=== PATIENT | female | born 1965 | race Caucasian/White ===

== ENCOUNTER 2017-04-28 15:39 | Emergency (ER) | payer OTHER ==
[~2017-04-28] VITALS: Ht 175.3 cm; Wt 86.2 kg
[~2017-04-28 15:39] MED LIST: ALBU90OI; ALBU90OI INH; ALBU90OI6 INH; AMIT50; AMIT50 PO; AMIT75; AMIT75 PO; AMITRIPTYLINE; AMOCLA875 PO; Amitriptyline H50 MG PO; BENZ100A PO; CEPH500 PO; CONEST.625; CYCL10 PO; DIVA250EC PO; DOXY100 PO; FELDENE; FLUT110OIA IH; GABA100; GABA300T24; HYDACE5; HYDACE5 PO; HYDACE7.5; HYDCHL12.5 PO; HYDCHL25 PO; HYDGUAL120 PO; HYDHCL25 PO; HYDMOR4 PO; HYDMOR8; IBUP600; IBUP800 PO; INDEROL; KETO10 PO; LISHYD1012 PO; LISI20 PO; LISI5 PO; MAGCIT300 PO; MECL25 PO; MORP60ER PO; NAPR500 PO; NAPR550 PO; OXYACE5T PO; OXYACE7.5T PO; OXYC15ER PO; PARO20; POTCHL20ER PO; PRED20 PO; PROM25; PROM25 PO; PROP10; PROP60; PROP60 PO; RXHYDACE PO; RXOXYACE PO; SULTRIDS PO; TRAM50; TRAM50 PO; VARE1 PO; [UNRECOGNIZED DRUG - REMARK]; [UNRECOGNIZED DRUG - REMARK]
[2017-04-28 16:35] LABS: Hematocrit 40.2 % (33.0-51.0); Hemoglobin 13.7 g/dL (11.5-16.0); Mean Corpuscular HGB 31.2 pg (26.0-34.0); Mean Corpuscular HGB Conc 34.1 g/dL (31.5-36.5); Mean Corpuscular Volume 92 fL (80-100); Mean Platelet Volume 11.3 fL (9.1-12.4); Platelet Count 166 K/mm3 (150-400); RDW Coefficient Variation 12.7 % (11.7-14.2); RDW Standard Deviation 42.5 fL (35.1-46.3); Red Blood Cell Count 4.39 M/mm3 (3.80-5.20); White Blood Cell Count 5.35 K/mm3 (4.00-11.30)
[2017-04-28 16:38] LABS: Anion Gap 9 mmol/L (6-16); Blood Urea Nitrogen 9 mg/dL (8-24); Bun/Creatinine Ratio 12.4 (12.0-20.0); CO2, Blood 24 mmol/L (21-32); Chloride, Blood 111 mmol/L (98-108); Creatinine, Blood 0.73 mg/dL (0.40-1.00); Glomerular Filtration Rate >60 (60-); Glucose, Blood 93 mg/dL (70-99); Sodium, Blood 144 mmol/L (136-145)
[2017-04-28] MEDS ORDERED: LISI20 PO (17:12)
[2017-06-11] MEDS ORDERED: Ultram50 MG PO (17:35)
[2017-06-11] MEDS ORDERED: POTCHL20ER PO (17:35)
[2017-09-13] MEDS ORDERED: LEVFLO500 PO (13:14)
== END 2017-04-28 17:22 | disposition home or self-care (01) ==
LOC: ER 15:39
PROVIDERS: Emergency Medicine
DX: I10 Essential (primary) hypertension (principal); Z91.14 Patient's other noncompliance with medication regimen; F32.9 Major depressive disorder, single episode, unspecified; G40.909 Epilepsy, unspecified, not intractable, without status epilepticus; J45.909 Unspecified asthma, uncomplicated; F17.210 Nicotine dependence, cigarettes, uncomplicated; Z86.73 Personal history of transient ischemic attack (TIA), and cerebral infarction without residual deficits; Z79.899 Other long term (current) drug therapy
CPT/HCPCS: 36415; 80048; 85027; 93005; 93010; 96374; 99283; J0360

== ENCOUNTER 2017-05-10 17:25 | Emergency (ER) | payer OTHER ==
[~2017-05-10] VITALS: Ht 175.3 cm; Wt 88.5 kg
[2017-05-10 18:08] LABS: BASOPHILS ABSOLUTE AUTO 0.05 K/mm3 (0.00-0.23); BASOPHILS PERCENT AUTO 1 % (0-2); EOSINOPHILS ABSOLUTE AUTO 0.06 K/mm3 (0.00-0.68); EOSINOPHILS PERCENT AUTO 1 % (0-6); Hematocrit 38.5 % (33.0-51.0); Hemoglobin 12.6 g/dL (11.5-16.0); IMMATURE GRAN ABSOLUTE AUTO 0.01 K/mm3 (0.00-0.10); IMMATURE GRAN PERCENT AUTO 0 % (0-1); LYMPHOCYTES ABSOLUTE AUTO 1.55 K/mm3 (0.84-5.20); LYMPHOCYTES PERCENT AUTO 23 % (21-46); MONOCYTES ABSOLUTE AUTO 0.42 K/mm3 (0.16-1.47); MONOCYTES PERCENT AUTO 6 % (4-13); Mean Corpuscular HGB 31.3 pg (26.0-34.0); Mean Corpuscular HGB Conc 32.7 g/dL (31.5-36.5); Mean Platelet Volume 10.8 fL (9.1-12.4); NEUTROPHILS ABSOLUTE AUTO 4.63 K/mm3 (1.96-9.15); NEUTROPHILS PERCENT AUTO 69 % (41-73); Platelet Count 249 K/mm3 (150-400); RDW Coefficient Variation 12.8 % (11.7-14.2); RDW Standard Deviation 45.1 fL (35.1-46.3); Red Blood Cell Count 4.02 M/mm3 (3.80-5.20); White Blood Cell Count 6.72 K/mm3 (4.00-11.30)
[2017-05-10 18:10] LABS: Mean Corpuscular Volume 96 fL (80-100)
[2017-05-10 18:29] LABS: Alanine Aminotransfer (ALT/SGP 15 U/L (12-78); Albumin, Blood 3.5 g/dL (3.4-5.0); Albumin/Globulin Ratio 0.9 (0.8-1.8); Alk Phos 105 U/L (50-136); Anion Gap 8 mmol/L (6-16); Aspartate Aminotrans (AST/SGOT 15 U/L (12-37); Bilirubin, Total 0.7 mg/dL (0.1-1.0); Blood Urea Nitrogen 7 mg/dL (8-24); Bun/Creatinine Ratio 8.5 (12.0-20.0); CO2, Blood 27 mmol/L (21-32); Calcium, Blood 8.9 mg/dL (8.5-10.1); Chloride, Blood 107 mmol/L (98-108); Creatinine, Blood 0.83 mg/dL (0.40-1.00); Globulin, Blood 3.8 g/dL (2.2-4.0); Glomerular Filtration Rate >60 (60-); Glucose, Blood 88 mg/dL (70-99); Potassium, Blood 3.4 mmol/L (3.5-5.5); Sodium, Blood 142 mmol/L (136-145); Total Protein, Blood 7.3 g/dL (6.4-8.2); Troponin I <0.015 ng/mL (0.000-0.040)
[2017-05-10] MEDS ORDERED: Robaxin500 MG PO (20:09)
[2017-06-11] MEDS ORDERED: Ultram50 MG PO (17:35)
[2017-06-11] MEDS ORDERED: POTCHL20ER PO (17:35)
[2017-09-13] MEDS ORDERED: LEVFLO500 PO (13:14)
== END 2017-05-10 20:14 | disposition home or self-care (01) ==
LOC: ER 17:25
PROVIDERS: Nurse Practitioner Family
DX: S20.212A Contusion of left front wall of thorax, initial encounter (principal); W22.8XXA Striking against or struck by other objects, initial encounter; Z88.8 Allergy status to other drugs, medicaments and biological substances; Z88.5 Allergy status to narcotic agent; Z79.899 Other long term (current) drug therapy; Z79.891 Long term (current) use of opiate analgesic; G43.909 Migraine, unspecified, not intractable, without status migrainosus; J45.909 Unspecified asthma, uncomplicated; I10 Essential (primary) hypertension; F17.200 Nicotine dependence, unspecified, uncomplicated
CPT/HCPCS: 36415; 71046; 80053; 84484; 85025; 93005; 93010; 99283

== ENCOUNTER 2017-09-10 22:26 | Emergency (ER) | payer OTHER ==
[~2017-09-10] VITALS: Ht 175.3 cm; Wt 88.5 kg
[~2017-09-10 22:26] MED LIST changes: +Robaxin500 MG PO; +Ultram50 MG PO
[2017-09-10] MEDS ORDERED: ALBU90OI6 INH (22:45)
[2017-09-10] MEDS ORDERED: OXYC15ER PO (22:46)
[2017-09-10] MEDS ORDERED: AMIT50 PO (22:46)
[2017-09-10] MEDS ORDERED: LISI20 PO (22:47)
[2017-09-10] MEDS ORDERED: DIVA250EC PO (22:48)
[2017-09-10] MEDS ORDERED: GABA300 PO (22:49)
[2017-09-10] MEDS ORDERED: BUSP5 PO (22:50)
[2017-09-10] MEDS ORDERED: PROM25 PO (22:50)
[2017-09-10] MEDS ORDERED: CITA20 PO (22:51)
[2017-09-13] MEDS ORDERED: LEVFLO500 PO (13:14)
== END 2017-09-11 01:20 | disposition home or self-care (01) ==
LOC: ER 22:26
DX: S93.401A Sprain of unspecified ligament of right ankle, initial encounter (principal); S63.501A Unspecified sprain of right wrist, initial encounter; S50.01XA Contusion of right elbow, initial encounter; S80.211A Abrasion, right knee, initial encounter; J45.909 Unspecified asthma, uncomplicated; I10 Essential (primary) hypertension; F17.200 Nicotine dependence, unspecified, uncomplicated; Z87.442 Personal history of urinary calculi; Z88.8 Allergy status to other drugs, medicaments and biological substances; Z88.5 Allergy status to narcotic agent; Z79.899 Other long term (current) drug therapy; Z79.51 Long term (current) use of inhaled steroids; W10.9XXA Fall (on) (from) unspecified stairs and steps, initial encounter
CPT/HCPCS: 73110; 73610; 99284-25

== ENCOUNTER 2017-09-23 17:07 | Emergency (ER) | payer OTHER ==
[~2017-09-23] VITALS: Ht 175.3 cm; Wt 88.5 kg
[~2017-09-23 17:07] MED LIST changes: +BUSP5 PO; +CITA20 PO; +GABA300 PO; +LEVFLO500 PO
[2017-09-23 17:55] LABS: BASOPHILS ABSOLUTE AUTO 0.04 K/mm3 (0.00-0.23); BASOPHILS PERCENT AUTO 1 % (0-2); EOSINOPHILS ABSOLUTE AUTO 0.04 K/mm3 (0.00-0.68); EOSINOPHILS PERCENT AUTO 1 % (0-6); Hematocrit 39.1 % (33.0-51.0); Hemoglobin 12.9 g/dL (11.5-16.0); IMMATURE GRAN ABSOLUTE AUTO 0.03 K/mm3 (0.00-0.10); IMMATURE GRAN PERCENT AUTO 0 % (0-1); LYMPHOCYTES ABSOLUTE AUTO 1.86 K/mm3 (0.84-5.20); LYMPHOCYTES PERCENT AUTO 22 % (21-46); MONOCYTES ABSOLUTE AUTO 0.71 K/mm3 (0.16-1.47); MONOCYTES PERCENT AUTO 9 % (4-13); Mean Corpuscular HGB 30.2 pg (26.0-34.0); Mean Corpuscular Volume 92 fL (80-100); Mean Platelet Volume 10.4 fL (9.1-12.4); NEUTROPHILS PERCENT AUTO 68 % (41-73); Platelet Count 218 K/mm3 (150-400); RDW Coefficient Variation 14.1 % (11.7-14.2); RDW Standard Deviation 47.3 fL (35.1-46.3); Red Blood Cell Count 4.27 M/mm3 (3.80-5.20); White Blood Cell Count 8.38 K/mm3 (4.00-11.30)
[2017-09-23 18:13] LABS: Albumin, Blood 3.3 g/dL (3.4-5.0); Albumin/Globulin Ratio 0.8 (0.8-1.8); Bilirubin, Total 0.3 mg/dL (0.1-1.0); Bun/Creatinine Ratio 13.4 (12.0-20.0); Calcium, Blood 8.7 mg/dL (8.5-10.1); Creatinine, Blood 1.42 mg/dL (0.40-1.00); Globulin, Blood 4.1 g/dL (2.2-4.0); Potassium, Blood 3.1 mmol/L (3.5-5.5); Total Protein, Blood 7.4 g/dL (6.4-8.2)
== END 2017-09-23 19:23 | disposition home or self-care (01) ==
LOC: ER 17:07
PROVIDERS: Emergency Medicine
DX: E86.0 Dehydration (principal); I10 Essential (primary) hypertension; F32.9 Major depressive disorder, single episode, unspecified; J45.909 Unspecified asthma, uncomplicated; G40.909 Epilepsy, unspecified, not intractable, without status epilepticus; F17.210 Nicotine dependence, cigarettes, uncomplicated; Z79.899 Other long term (current) drug therapy
CPT/HCPCS: 36415; 80053; 85025; 96360; 99284-25; J7030

== ENCOUNTER → 2017-09-28 | Outpatient (CLI) | payer OTHER | LOC: LAB 11:00 → LAB SHORT 11:00 | DX: G89.4 Chronic pain syndrome (principal) | CPT/HCPCS: G0480 ==

== ENCOUNTER 2018-04-22 12:39 | Emergency (ER) | payer OTHER ==
[~2018-04-22] VITALS: Ht 175.3 cm; Wt 90.7 kg
[2018-04-22] MEDS ORDERED: Percocet 10-321 EACH PO (15:21)
== END 2018-04-22 16:08 | disposition home or self-care (01) ==
LOC: ER 12:39
DX: S42.202A Unspecified fracture of upper end of left humerus, initial encounter for closed fracture (principal); W01.198A Fall on same level from slipping, tripping and stumbling with subsequent striking against other object, initial encounter; F32.9 Major depressive disorder, single episode, unspecified; G40.909 Epilepsy, unspecified, not intractable, without status epilepticus; G43.909 Migraine, unspecified, not intractable, without status migrainosus; J45.909 Unspecified asthma, uncomplicated; I10 Essential (primary) hypertension; F17.200 Nicotine dependence, unspecified, uncomplicated; Z88.8 Allergy status to other drugs, medicaments and biological substances; Z88.5 Allergy status to narcotic agent; Z79.899 Other long term (current) drug therapy; Z79.891 Long term (current) use of opiate analgesic
CPT/HCPCS: 29125; 73030; 73070; 73110; 96374-59; 96376-59; 99283-25; J1170

== ENCOUNTER → 2018-06-20 | Outpatient (CLI) | payer OTHER ==
[~2018-06-20] MED LIST changes: +Percocet 10-321 EACH PO
[2018-06-20 14:26] LABS: Appearance, Urine Hazy (Clear); Bilirubin, Urine Neg (Neg); Blood, Urine 2+ (Neg); Color, Urine Yellow (P-Yellow); Glucose Qualitative, Urine Neg (Neg); Ketones, Urine 1+ (Neg); Leukocyte Esterase, Urine 2+ (Neg); Nitrite, Urine Pos (Neg); Protein, Urine 1+ (Neg); Specific Gravity, Urine 1.015 (1.003-1.022); Urobilinogen, Urine NORM (Normal)
[2018-06-20 15:29] LABS: Squamous Epithelial Cells Many /hpf (Few)
[2018-06-20 15:30] LABS: Bacteria Many /hpf; White Blood Cells, Urine 50-100 /hpf (0-5)
== END | disposition home or self-care (01) ==
LOC: LAB SHORT 13:30 → LAB 13:30
PROVIDERS: Internal Medicine
DX: N17.9 Acute kidney failure, unspecified (principal); R39.14 Feeling of incomplete bladder emptying
CPT/HCPCS: 81001; 87077; 87086; 87186

== ENCOUNTER 2018-07-28 14:36 | Emergency (ER) | payer OTHER ==
[~2018-07-28] VITALS: Ht 172.7 cm; Wt 113.4 kg
== END 2018-07-28 18:36 | disposition home or self-care (01) ==
LOC: ER 14:36
DX: T14.8XXA Other injury of unspecified body region, initial encounter (principal); I10 Essential (primary) hypertension; J45.909 Unspecified asthma, uncomplicated; F17.210 Nicotine dependence, cigarettes, uncomplicated; Z88.8 Allergy status to other drugs, medicaments and biological substances; Z88.5 Allergy status to narcotic agent; Z79.899 Other long term (current) drug therapy; Z87.442 Personal history of urinary calculi; Z86.73 Personal history of transient ischemic attack (TIA), and cerebral infarction without residual deficits; W19.XXXA Unspecified fall, initial encounter
CPT/HCPCS: 29125; 71046; 71100; 72040; 73110; 96374-59; 99284-25; J1885

== ENCOUNTER 2019-02-05 12:27 | Emergency (ER) | payer OTHER ==
[~2019-02-05] VITALS: Ht 175.3 cm; Wt 99.8 kg
[2019-02-05] MEDS ORDERED: Percocet 5-3251 EACH PO (14:41)
== END 2019-02-05 15:14 | disposition home or self-care (01) ==
LOC: ER 12:27
DX: S22.31XA Fracture of one rib, right side, initial encounter for closed fracture (principal); F32.9 Major depressive disorder, single episode, unspecified; G40.909 Epilepsy, unspecified, not intractable, without status epilepticus; J45.909 Unspecified asthma, uncomplicated; I10 Essential (primary) hypertension; Z86.73 Personal history of transient ischemic attack (TIA), and cerebral infarction without residual deficits; F17.200 Nicotine dependence, unspecified, uncomplicated; Z88.5 Allergy status to narcotic agent; Z88.8 Allergy status to other drugs, medicaments and biological substances; Z79.899 Other long term (current) drug therapy; W18.09XA Striking against other object with subsequent fall, initial encounter
CPT/HCPCS: 70450; 71101; 99284-25

== ENCOUNTER 2019-05-18 20:41 | Emergency (ER) | payer OTHER ==
[~2019-05-18] VITALS: Ht 175.3 cm; Wt 90.7 kg
[~2019-05-18 20:41] MED LIST changes: +Percocet 5-3251 EACH PO
[2019-05-18] MEDS ORDERED: METFORMIN HCL500 M3 PO (21:09)
[2019-05-18] MEDS ORDERED: PREG100 PO (21:10)
[2019-05-18] MEDS ORDERED: ALENDRONATE SOD10 MG PO (21:11)
[2019-05-18] MEDS ORDERED: Vitamin D2000 UNIT PO (21:11)
[2019-05-18] MEDS ORDERED: KLOR-CON M1010 MEQ PO (21:13)
[2019-05-18] MEDS ORDERED: PRINIVIL10 MG PO (21:14)
[2019-05-18 22:21] LABS: BASOPHILS ABSOLUTE AUTO 0.03 K/mm3 (0.00-0.23); BASOPHILS PERCENT AUTO 1 % (0-2); EOSINOPHILS ABSOLUTE AUTO 0.14 K/mm3 (0.00-0.68); EOSINOPHILS PERCENT AUTO 2 % (0-6); Hematocrit 38.7 % (33.0-51.0); Hemoglobin 12.9 g/dL (11.5-16.0); IMMATURE GRAN ABSOLUTE AUTO 0.02 K/mm3 (0.00-0.10); IMMATURE GRAN PERCENT AUTO 0 % (0-1); LYMPHOCYTES ABSOLUTE AUTO 2.13 K/mm3 (0.84-5.20); LYMPHOCYTES PERCENT AUTO 34 % (21-46); MONOCYTES ABSOLUTE AUTO 0.64 K/mm3 (0.16-1.47); MONOCYTES PERCENT AUTO 10 % (4-13); Mean Corpuscular HGB 31.8 pg (26.0-34.0); Mean Corpuscular HGB Conc 33.3 g/dL (31.5-36.5); Mean Corpuscular Volume 95 fL (80-100); Mean Platelet Volume 11.4 fL (9.1-12.4); NEUTROPHILS ABSOLUTE AUTO 3.33 K/mm3 (1.96-9.15); NEUTROPHILS PERCENT AUTO 53 % (41-73); Platelet Count 231 K/mm3 (150-400); RDW Coefficient Variation 12.8 % (11.7-14.2); RDW Standard Deviation 44.9 fL (35.1-46.3); Red Blood Cell Count 4.06 M/mm3 (3.80-5.20); White Blood Cell Count 6.29 K/mm3 (4.00-11.30)
[2019-05-18 22:41] LABS: Alanine Aminotransfer (ALT/SGP 27 U/L (12-78); Albumin/Globulin Ratio 0.8 (0.8-1.8); Alk Phos 102 U/L (50-136); Anion Gap 5 mmol/L (6-16); Aspartate Aminotrans (AST/SGOT 37 U/L (12-37); Bilirubin, Total 0.3 mg/dL (0.1-1.0); Blood Urea Nitrogen 16 mg/dL (8-24); Bun/Creatinine Ratio 20.4 (12.0-20.0); CO2, Blood 28 mmol/L (21-32); Calcium, Blood 8.5 mg/dL (8.5-10.1); Chloride, Blood 108 mmol/L (98-108); Creatinine, Blood 0.78 mg/dL (0.40-1.00); Globulin, Blood 3.9 g/dL (2.2-4.0); Glomerular Filtration Rate >60 (60-); Glucose, Blood 100 mg/dL (70-99); Potassium, Blood 4.6 mmol/L (3.5-5.5); Sodium, Blood 141 mmol/L (136-145); Total Protein, Blood 6.9 g/dL (6.4-8.2); Troponin I <0.015 ng/mL (0.000-0.040)
[2019-05-18] MEDS ORDERED: METPRE4DP PO (23:16)
== END 2019-05-18 23:41 | disposition home or self-care (01) ==
LOC: ER 20:41
PROVIDERS: Emergency Medicine
DX: G35 Multiple sclerosis (principal); R29.6 Repeated falls; I10 Essential (primary) hypertension; J45.909 Unspecified asthma, uncomplicated; F32.9 Major depressive disorder, single episode, unspecified; G43.909 Migraine, unspecified, not intractable, without status migrainosus; G40.909 Epilepsy, unspecified, not intractable, without status epilepticus; Z88.8 Allergy status to other drugs, medicaments and biological substances; Z88.5 Allergy status to narcotic agent; Z79.899 Other long term (current) drug therapy; Z79.84 Long term (current) use of oral hypoglycemic drugs; Z79.51 Long term (current) use of inhaled steroids; Z86.73 Personal history of transient ischemic attack (TIA), and cerebral infarction without residual deficits; Z87.891 Personal history of nicotine dependence
CPT/HCPCS: 36415; 73502; 80053; 83735; 84484; 85025; 85651; 93005; 93010; 96374; 99284-25; A9270; J2930

== ENCOUNTER 2019-08-14 16:47 | Emergency (ER) | payer OTHER ==
[~2019-08-14] VITALS: Ht 175.3 cm; Wt 99.8 kg
[~2019-08-14 16:47] MED LIST changes: +ALENDRONATE SOD10 MG PO; +KLOR-CON M1010 MEQ PO; +METFORMIN HCL500 M3 PO; +METPRE4DP PO; +PREG100 PO; +PRINIVIL10 MG PO; +Vitamin D2000 UNIT PO
== END 2019-08-14 19:34 | disposition home or self-care (01) ==
LOC: ER 16:47
DX: S09.90XA Unspecified injury of head, initial encounter (principal); S16.1XXA Strain of muscle, fascia and tendon at neck level, initial encounter; S29.012A Strain of muscle and tendon of back wall of thorax, initial encounter; Z88.5 Allergy status to narcotic agent; Z88.8 Allergy status to other drugs, medicaments and biological substances; Z79.84 Long term (current) use of oral hypoglycemic drugs; Z79.899 Other long term (current) drug therapy; G40.909 Epilepsy, unspecified, not intractable, without status epilepticus; J45.909 Unspecified asthma, uncomplicated; Z87.820 Personal history of traumatic brain injury; I10 Essential (primary) hypertension; F32.9 Major depressive disorder, single episode, unspecified; Z86.73 Personal history of transient ischemic attack (TIA), and cerebral infarction without residual deficits; F17.210 Nicotine dependence, cigarettes, uncomplicated; W19.XXXA Unspecified fall, initial encounter
CPT/HCPCS: 70450; 72070; 72100; 72125; 96374; 99284-25; J3010

== ENCOUNTER 2020-07-20 13:07 | Emergency (ER) | payer OTHER ==
[~2020-07-20] VITALS: Ht 175.3 cm; Wt 92.5 kg
== END 2020-07-20 16:51 | disposition home or self-care (01) ==
LOC: ER 13:07
DX: S62.002A Unspecified fracture of navicular [scaphoid] bone of left wrist, initial encounter for closed fracture (principal); I10 Essential (primary) hypertension; F17.210 Nicotine dependence, cigarettes, uncomplicated; Z88.5 Allergy status to narcotic agent; Z88.8 Allergy status to other drugs, medicaments and biological substances; Z86.73 Personal history of transient ischemic attack (TIA), and cerebral infarction without residual deficits; W18.30XA Fall on same level, unspecified, initial encounter; Y92.480 Sidewalk as the place of occurrence of the external cause
CPT/HCPCS: 29125; 73060; 73090; 73110; 99283-25; A9270

== ENCOUNTER 2020-10-30 16:48 | Emergency (ER) | payer OTHER ==
[~2020-10-30] VITALS: Ht 175.3 cm; Wt 99.8 kg
[2020-10-30 17:18] LABS: Hematocrit 36.2 % (33.0-51.0); Hemoglobin 11.8 g/dL (11.5-16.0); Mean Corpuscular HGB 31.6 pg (26.0-34.0); Mean Corpuscular HGB Conc 32.6 g/dL (31.5-36.5); Mean Corpuscular Volume 97 fL (80-100); Mean Platelet Volume 10.1 fL (9.1-12.4); NRBC ABSOLUTE 0.02 K/mm3 (0.00-0.02); NRBC Auto 0.4 /100 WBC (0.0-0.2); Platelet Count 253 K/mm3 (150-400); RDW Standard Deviation 46.2 fL (35.1-46.3); Red Blood Cell Count 3.73 M/mm3 (3.80-5.20)
[2020-10-30 17:39] LABS: Anion Gap 7 mmol/L (6-16); Blood Urea Nitrogen 19 mg/dL (8-24); CO2, Blood 28 mmol/L (21-32); Calcium, Blood 8.8 mg/dL (8.5-10.1); Chloride, Blood 107 mmol/L (98-108); Glomerular Filtration Rate >60 (60-); Glucose, Blood 115 mg/dL (70-99); Potassium, Blood 3.7 mmol/L (3.5-5.5); Sodium, Blood 142 mmol/L (136-145)
[2020-10-30 17:40] LABS: Alanine Aminotransfer (ALT/SGP 16 U/L (12-78); Albumin, Blood 3.3 g/dL (3.4-5.0); Albumin/Globulin Ratio 0.9 (0.8-1.8); Alk Phos 78 U/L (50-136); Aspartate Aminotrans (AST/SGOT 12 U/L (12-37); Bilirubin, Total 0.4 mg/dL (0.1-1.0); Globulin, Blood 3.6 g/dL (2.2-4.0); Total Protein, Blood 6.9 g/dL (6.4-8.2)
[2020-10-30 17:56] LABS: BASOPHILS ABSOLUTE MAN 0.04 K/mm3 (0.00-0.23); BASOPHILS PERCENT MAN 1 % (0-2); EOSINOPHILS ABSOLUTE MAN 0.09 K/mm3 (0.00-0.68); EOSINOPHILS PERCENT MAN 2 % (0-6); LYMPHOCYTES ABSOLUTE MAN 1.93 K/mm3 (0.84-5.20); LYMPHOCYTES PERCENT MAN 42 % (21-46); MONOCYTES ABSOLUTE MAN 0.09 K/mm3 (0.16-1.47); MONOCYTES PERCENT MAN 2 % (4-13); NEUTROPHILS ABSOLUTE MAN 2.43 K/mm3 (1.96-9.15); SEG NEUTROPHILS PERCENT MAN 53 % (41-73); TOTAL CELLS COUNTED 100
[2020-10-30 19:01] LABS: International Normalized Ratio 0.94; Prothrombin Time Results 10.2 Sec (9.7-11.5)
[2020-10-30] MEDS ORDERED: OXYACE7.5T PO (19:29)
== END 2020-10-30 20:13 | disposition home or self-care (01) ==
LOC: ER 16:48
PROVIDERS: Physician Assistant
DX: R51.9 Headache, unspecified (principal); I10 Essential (primary) hypertension; G40.909 Epilepsy, unspecified, not intractable, without status epilepticus; J45.909 Unspecified asthma, uncomplicated; F17.200 Nicotine dependence, unspecified, uncomplicated; Z86.73 Personal history of transient ischemic attack (TIA), and cerebral infarction without residual deficits; Z88.8 Allergy status to other drugs, medicaments and biological substances; Z88.5 Allergy status to narcotic agent; Z79.899 Other long term (current) drug therapy; Z79.84 Long term (current) use of oral hypoglycemic drugs
CPT/HCPCS: 36415; 70450; 80053; 85025; 85610; 93005; 93010; 96374; 96375; 99285-25; A9270; J1200; J1630; J1885; J2765; J7030

== ENCOUNTER → 2021-05-21 | Outpatient (CLI) | payer OTHER ==
[2021-05-21 12:19] LABS: Source, Urine Clean Catch
[2021-05-21 13:40] LABS: Appearance, Urine Clear (Clear); Bilirubin, Urine Neg (Neg); Blood, Urine 4+ (Neg); Color, Urine Yellow (P-Yellow); Glucose Qualitative, Urine Neg (Neg); Ketones, Urine 1+ (Neg); Leukocyte Esterase, Urine 1+ (Neg); Nitrite, Urine Neg (Neg); Protein, Urine 1+ (Neg); Specific Gravity, Urine 1.025 (1.003-1.022); Urobilinogen, Urine NORM (Normal)
[2021-05-21 13:51] LABS: Calcium Oxalate Crystals Few /hpf; Squamous Epithelial Cells Many /hpf (Few)
[2021-05-21 13:52] LABS: Bacteria Mod /hpf; Hyaline Casts 0-2 /lpf (0-2); Red Blood Cells, Urine 25-50 /hpf (0-2); Transitional Epithelial Cells Few /hpf (0-Rare)
[2021-05-21 14:41] LABS: Protein, Urine Random 24.9 mg/dL (0.0-11.9); Protein/Creat Ratio, Ur Random 0.1
== END | disposition home or self-care (01) ==
LOC: LAB 12:12 → LAB SHORT 12:12
PROVIDERS: Internal Medicine Nephrology
DX: M54.50 Low back pain, unspecified (principal)
CPT/HCPCS: 81001; 82570; 84156; 87086

== ENCOUNTER → 2021-10-10 | Outpatient (CLI) | payer OTHER | END | disposition home or self-care (01) | LOC: LAB SHORT 06:27 → LAB 10:00 → LAB SHORT 10-11 14:28 → LAB FUT 09-29 16:00 → EDSTATUS 09-29 16:00 | DX: N20.0 Calculus of kidney (principal) | CPT/HCPCS: 81050 ==

== ENCOUNTER 2021-11-01 19:54 | Emergency (ER) | payer OTHER ==
[~2021-11-01] VITALS: Ht 175.3 cm; Wt 90.7 kg
== END 2021-11-01 20:48 | disposition left against medical advice (07) ==
LOC: ER 19:54
DX: M79.672 Pain in left foot (principal); Z53.21 Procedure and treatment not carried out due to patient leaving prior to being seen by health care provider; Z79.899 Other long term (current) drug therapy
CPT/HCPCS: 99281

== ENCOUNTER 2022-02-05 14:32 | Inpatient (IN) | payer OTHER ==
[~2022-02-05] VITALS: Ht 175.3 cm; Wt 102.6 kg
[2022-02-05 17:48] LABS: Source, Urine Straight Cath
[2022-02-05 17:49] LABS: Albumin, Blood 3.1 g/dL (3.4-5.0); Albumin/Globulin Ratio 0.6 (0.8-1.8); Bilirubin, Total 0.8 mg/dL (0.1-1.0); Bun/Creatinine Ratio 10.9 (12.0-20.0); Calcium, Blood 8.6 mg/dL (8.5-10.1); Creatinine, Blood 3.04 mg/dL (0.40-1.00); Potassium, Blood 4.1 mmol/L (3.5-5.5); Total Protein, Blood 8.1 g/dL (6.4-8.2)
[2022-02-05 17:52] LABS: Appearance, Urine Cloudy (Clear); Blood, Urine 5+ (Neg); Color, Urine Amber (P-Yellow); Glucose Qualitative, Urine Neg (Neg); Ketones, Urine Neg (Neg); Leukocyte Esterase, Urine 1+ (Neg); Nitrite, Urine Neg (Neg); Protein, Urine 2+ (Neg); Specific Gravity, Urine 1.025 (1.003-1.022); Urobilinogen, Urine NORM (Normal)
[2022-02-05 17:53] LABS: Bilirubin, Urine 1+ (Neg)
[2022-02-05 18:00] LABS: Granular Casts 0-2 /lpf (0); Hyaline Casts 0-2 /lpf (0-2)
[2022-02-05 18:01] LABS: Bacteria Many /hpf; Squamous Epithelial Cells Rare /hpf (Few)
[2022-02-05 18:25] LABS: Hematocrit 35.1 % (33.0-51.0); Hemoglobin 11.4 g/dL (11.5-16.0); Mean Corpuscular HGB 29.8 pg (26.0-34.0); Mean Corpuscular HGB Conc 32.5 g/dL (31.5-36.5); Mean Corpuscular Volume 92 fL (80-100); Mean Platelet Volume 10.7 fL (9.1-12.4); Platelet Count 218 K/mm3 (150-400); RDW Coefficient Variation 13.2 % (11.7-14.2); RDW Standard Deviation 44.6 fL (35.1-46.3); Red Blood Cell Count 3.82 M/mm3 (3.80-5.20); White Blood Cell Count 6.25 K/mm3 (4.00-11.30)
[2022-02-05 18:46] LABS: BAND PERCENT MAN 13 % (0-8); BASOPHILS PERCENT MAN 0 % (0-2); EOSINOPHILS PERCENT MAN 0 % (0-6); LYMPHOCYTES ABSOLUTE MAN 1.43 K/mm3 (0.84-5.20); LYMPHOCYTES PERCENT MAN 23 % (21-46); METAMYELOCYTE ABSOLUTE MAN 0.06 K/mm3 (0.00-0.00); METAMYELOCYTE PERCENT MAN 1 % (0-0); MONOCYTES ABSOLUTE MAN 0.43 K/mm3 (0.16-1.47); MONOCYTES PERCENT MAN 7 % (4-13); NEUTROPHILS ABSOLUTE MAN 4.31 K/mm3 (1.96-9.15); SEG NEUTROPHILS PERCENT MAN 56 % (41-73); TOTAL CELLS COUNTED 100
[2022-02-05 19:58] LABS: U Amphetamine Screen Not Detected; U Barbituate Screen Not Detected; U Benzodiazapine Screen Not Detected; U Buprenorphine Screen Not Detected; U Cannabinoids Screen DETECTED; U Cocaine Screen Not Detected; U Methadone Screen Not Detected; U Methamphetamine Screen Not Detected; U Opiates Screen Not Detected; U Oxycodone Screen DETECTED; U Phencyclidine Screen Not Detected; U Propoxyphene Screen Not Detected
[2022-02-05 21:07] LABS: Valproic Acid 78.4 ug/mL (50.0-100.0)
--- NOTE | 2022-02-05 22:58 | NUR ---
ADMISSION REPORT RECIEVED FROM ER NURSE, PATIENT ARRIVES TO PCU 19. PATIENT VERY CONFUSED, TALKING IN NONSENSICAL SENTENCES BUT CAN STATE THAT SHE IS IN THE HOSPITAL AND IT IS 2021. BED ALARM ON FOR SAFETY. LAB AT BEDSIDE DRAWING BLOOD CULTURES, COVID/RSV/FLU SWAB COLLECTED AND SENT TO LAB. VSS, PATIENT ON RA WITH O2 SAT >90%, AUDIBLY WHEEZING WITH NONPRODUCTIVE COUGH. HR 100s. DENIES CHEST PAIN OR SOB. PATIENT DOES REPORT "PAIN ALL OVER" AND STATES SHE HAS FALLEN "HUNDREDS OF TIMES" OVER THE PAST FEW DAYS.
[2022-02-05 23:40] LABS: Influenza A, PCR NEGATIVE (NEGATIVE); Influenza B, PCR NEGATIVE (NEGATIVE); SARS-Cov-2 (COVID-19) PCR, MMC NEGATIVE (NEGATIVE)
[2022-02-05 23:55] LABS: Resp Syncytial Virus, PCR POSITIVE (NEGATIVE)
[2022-02-06 04:46] LABS: Hematocrit 30.1 % (33.0-51.0); Mean Corpuscular HGB 29.9 pg (26.0-34.0); Mean Corpuscular HGB Conc 33.2 g/dL (31.5-36.5); Mean Corpuscular Volume 90 fL (80-100); Mean Platelet Volume 11.2 fL (9.1-12.4); Platelet Count 193 K/mm3 (150-400); RDW Coefficient Variation 13.3 % (11.7-14.2); RDW Standard Deviation 43.9 fL (35.1-46.3); Red Blood Cell Count 3.35 M/mm3 (3.80-5.20); White Blood Cell Count 6.23 K/mm3 (4.00-11.30)
--- NOTE | 2022-02-06 05:47 | NUR ---
SHIFT SUMMARY MED TELE STATUS PATIENT ALERT, ORIENTED x2-3 BUT SPEAKS NONSENSICAL SENTENCES. VSS, PATIENT REMAINS ON RA T/O NIGHT WITH O2 SAT >90%. PATIENT REPORTS BILAT ANKLE/FOOT PAIN, MEDICATED PER EMAR. BRYAN INSERTED D/T RETENTION. NO CHANGES SINCE ADMISSION, WILL REPORT TO DAY SHIFT RN.
[2022-02-06 05:50] LABS: BAND PERCENT MAN 24 % (0-8); BASOPHILS PERCENT MAN 0 % (0-2); EOSINOPHILS PERCENT MAN 0 % (0-6); LYMPHOCYTES % ATYPICAL MANUAL 1 % (0-0); LYMPHOCYTES ABSOLUTE MAN 1.24 K/mm3 (0.84-5.20); LYMPHOCYTES PERCENT MAN 19 % (21-46); MONOCYTES ABSOLUTE MAN 0.31 K/mm3 (0.16-1.47); MONOCYTES PERCENT MAN 5 % (4-13); NEUTROPHILS ABSOLUTE MAN 4.67 K/mm3 (1.96-9.15); SEG NEUTROPHILS PERCENT MAN 51 % (41-73); TOTAL CELLS COUNTED 100
[2022-02-06 06:06] LABS: Albumin, Blood 2.6 g/dL (3.4-5.0); Albumin/Globulin Ratio 0.6 (0.8-1.8); Bilirubin, Total 0.6 mg/dL (0.1-1.0); Bun/Creatinine Ratio 16.1 (12.0-20.0); Calcium, Blood 8.1 mg/dL (8.5-10.1); Creatinine, Blood 2.55 mg/dL (0.40-1.00); Globulin, Blood 4.2 g/dL (2.2-4.0); Potassium, Blood 2.7 mmol/L (3.5-5.5); Total Protein, Blood 6.8 g/dL (6.4-8.2)
--- NOTE | 2022-02-06 10:42 | NUR ---
CARE NOTE FLAGYL LATE DUE TO NEED OF IV ACCESS. PT HAS REPORTED 10/10 PAIN IN BILATERAL LEGS, PLEASE SEE EMAR, COLD COMPRESS ALSO IN PLACE THIS AM. DRY COUGH NOTED. FIRST BAG OF [place] IS STILL INFUSING, WILL HANG SECOND BAG WHEN FIRST BAG IS COMPLETE. TELE MONITORING IS IN PLACE, BED ALARM IS ON.
--- NOTE | 2022-02-06 15:14 | NUR ---
CARE NOTE RETURN CALL PLACED TO FAMILY FRIEND ANTONIETTA TO PROVIDE UPDATE AT APPROX. 1515. PT GAVE VERBAL CONSENT TO PROVIDE UPDATE, SEE CHART FOR CONSENT FORMS.
--- NOTE | 2022-02-06 18:04 | NUR ---
SHIFT SUMMARY PT IS ALERT AND ANSWERS ORIENTATION QUESTIONS APPROPRIATELY X 4 BUT SHE ALSO WILL SAY NON-SENSICAL THINGS AND WAS HALLUCINATING THIS AM. SHE REPORTED SEEING A BABY IN THE ROOM. SHE ALSO CALLS OUT AT TIMES BUT WHEN STAFF CHECKS ON HER SHE APPEARS ORIENTED. VSS, SPO2 MAINTAINED >95% VIA ROOM AIR, SHE DENIES FEELINGS OF CHEST PAIN/PRESSURE. THIS AM SHE REPORTED PAIN IN BILATERAL FEET, SEE EMAR FOR PAIN MANAGEMENT. ICE PACK OFFERED AND DENIED, RIGHT FOOT NOTABLY MORE BRUISED AND SWOLLEN AND HAS BEEN ELEVATED ON PILLOW. SEE CHART FOR PHOTOS OF FEET WELL COCCYX. PT REPORTED BRUISING IS A RESULT OF A FALL AT HOME. BRYAN CATHETER IS IN PLACE AND DRAINING TEA COLORED OUTPUT. PER REPORT, CATHETER PLACED DUE TO RETENTION ISSUES. BED ALARM HAS BEEN USED T/O SHIFT DUE TO AMS. PT IS NOW EATING DINNER, CALL LIGHT IS IN REACH. WILL CONTINUE TO MONITOR UNTIL REPORT GIVEN.
[2022-02-07 06:03] LABS: BASOPHILS ABSOLUTE AUTO 0.02 K/mm3 (0.00-0.23); BASOPHILS PERCENT AUTO 0 % (0-2); EOSINOPHILS ABSOLUTE AUTO 0.01 K/mm3 (0.00-0.68); EOSINOPHILS PERCENT AUTO 0 % (0-6); Hematocrit 29.9 % (33.0-51.0); Hemoglobin 9.7 g/dL (11.5-16.0); IMMATURE GRAN ABSOLUTE AUTO 0.06 K/mm3 (0.00-0.10); IMMATURE GRAN PERCENT AUTO 1 % (0-1); LYMPHOCYTES ABSOLUTE AUTO 1.41 K/mm3 (0.84-5.20); LYMPHOCYTES PERCENT AUTO 27 % (21-46); MONOCYTES ABSOLUTE AUTO 0.82 K/mm3 (0.16-1.47); MONOCYTES PERCENT AUTO 16 % (4-13); Mean Corpuscular HGB 29.7 pg (26.0-34.0); Mean Corpuscular HGB Conc 32.4 g/dL (31.5-36.5); Mean Corpuscular Volume 91 fL (80-100); NEUTROPHILS ABSOLUTE AUTO 2.93 K/mm3 (1.96-9.15); NEUTROPHILS PERCENT AUTO 56 % (41-73); Platelet Count 192 K/mm3 (150-400); RDW Coefficient Variation 13.5 % (11.7-14.2); Red Blood Cell Count 3.27 M/mm3 (3.80-5.20); White Blood Cell Count 5.25 K/mm3 (4.00-11.30)
[2022-02-07 06:20] LABS: Albumin, Blood 2.4 g/dL (3.4-5.0); Albumin/Globulin Ratio 0.6 (0.8-1.8); Bilirubin, Total 0.3 mg/dL (0.1-1.0); Bun/Creatinine Ratio 25.2 (12.0-20.0); Calcium, Blood 8.1 mg/dL (8.5-10.1); Creatinine, Blood 1.27 mg/dL (0.40-1.00); Globulin, Blood 4.3 g/dL (2.2-4.0); Potassium, Blood 3.4 mmol/L (3.5-5.5); Total Protein, Blood 6.7 g/dL (6.4-8.2)
--- NOTE | 2022-02-07 06:20 | NUR ---
SHIFT SUMMARY MED TELE STATUS PATIENT ALERT, ANSWERS QUESTIONS APPROPRIATELY BUT IS FORGETFUL. PATIENT ALSO SPEAKING NONSENSICAL AND WILL HALLUCINATE AT TIMES. VSS, PATIENT REMAINS ON RA WITH O2 SAT >90%. MEDICATED PER EMAR FOR PAIN. BRYAN IN PLACE DRAINING DARK YELLOW URINE TO GRAVITY. PATIENT ASSISTING WITH MOVING HERSELF IN THE BED. INCONTINENT OF BOWEL x1 OVERNIGHT BUT USED CALL LIGHT FOR SECOND ATTEMPT TO USE BEDPAN. FLAGYL DCd OVERNIGHT D/T PATIENT HAVING MILD REACTION FOR SECOND NIGHT AFTER 0000 D/T REACTION, BENADRYL ADMINISTERED WITH RELIEF OF SYMPTOMS. NO OTHER SIGNIFICANT CHANGES, WILL REPORT TO DAY SHIFT RN.
--- NOTE | 2022-02-07 17:29 | NUR ---
SHIFT SUMMARY PT HAS BEEN RESTING IN ROOM THROUGHOUT THE DAY. PT IS ABLE TO ANSWER ALL ORIENTATION QUESTIONS APPROPRIATELY, THEY DO NOT REMEMBER DETAILS FROM ONE INTERACTION TO THE NEXT AND THEY HAVE EXPERIENCED AUDITORY AND VISUAL HALLUCINATIONS. PT HAS C/O A HEADACHE AND 7/10 PAIN TO BILATERAL FEET. PT DECLINED THE ORDERED MEDICATION FOR MOST OF THE DAY, THEY ACQUIESCED IN THE AFTERNOON BUT STILL STATED THAT THE ORDERED MEDICATION "DOES NOT WORK." VITAL SIGNS HAVE REMAINED STABLE, NO ACUTE CHANGES IN PT CONDITION.
[2022-02-08 05:04] LABS: BASOPHILS ABSOLUTE AUTO 0.03 K/mm3 (0.00-0.23); BASOPHILS PERCENT AUTO 1 % (0-2); EOSINOPHILS ABSOLUTE AUTO 0.04 K/mm3 (0.00-0.68); EOSINOPHILS PERCENT AUTO 1 % (0-6); Hematocrit 30.9 % (33.0-51.0); Hemoglobin 9.8 g/dL (11.5-16.0); IMMATURE GRAN ABSOLUTE AUTO 0.06 K/mm3 (0.00-0.10); IMMATURE GRAN PERCENT AUTO 1 % (0-1); LYMPHOCYTES ABSOLUTE AUTO 1.42 K/mm3 (0.84-5.20); LYMPHOCYTES PERCENT AUTO 32 % (21-46); MONOCYTES ABSOLUTE AUTO 0.72 K/mm3 (0.16-1.47); MONOCYTES PERCENT AUTO 16 % (4-13); Mean Corpuscular HGB 29.6 pg (26.0-34.0); Mean Corpuscular HGB Conc 31.7 g/dL (31.5-36.5); Mean Corpuscular Volume 93 fL (80-100); Mean Platelet Volume 10.8 fL (9.1-12.4); NEUTROPHILS ABSOLUTE AUTO 2.14 K/mm3 (1.96-9.15); NEUTROPHILS PERCENT AUTO 49 % (41-73); Platelet Count 194 K/mm3 (150-400); RDW Coefficient Variation 13.3 % (11.7-14.2); RDW Standard Deviation 46.2 fL (35.1-46.3); Red Blood Cell Count 3.31 M/mm3 (3.80-5.20); White Blood Cell Count 4.41 K/mm3 (4.00-11.30)
[2022-02-08 05:32] LABS: Bun/Creatinine Ratio 21.3 (12.0-20.0); Calcium, Blood 8.5 mg/dL (8.5-10.1); Creatinine, Blood 0.89 mg/dL (0.40-1.00); Potassium, Blood 3.9 mmol/L (3.5-5.5)
--- NOTE | 2022-02-08 05:42 | NUR ---
SHIFT SUMMARY MED TELE STATUS PT A/O X4. PT HEARD CONVERSING IN ROOM WITH NO ONE PRESENT AT THE BEGINNING OF THE SHIFT. SINCE THEN, PT DOES NOT APPEAR TO BE HAVING ANY VISUAL HALLUCINATIONS. PT WAS COMMUNICATING APPROPRIATELY WITH STAFF. PT HR REMAINED SR IN THE 80-90'S. SPO2 REMAINED ABOVE 92%, RESPIRATIONS EVEN AND UNLABORED. PT C/O HEADACHE AND REQUESTING IBUPROFEN. PT REMINDED THAT SHE IS UNABLE TO HAVE IBUPROFEN DUE TO HER TALA. PT EXPRESSED FRUSTRATION ABOUT THIS FREQUENTLY. PT PROVIDED WITH ICE PACK FOR HEADACHE AND SHE WAS ABLE TO GET SOME RELIEF FROM THIS. PT REQUESTING TO GET OUT OF BED AND WALK AROUND. SHE WAS ABLE TO AMBULATE 5-10 STEPS WITH 2 PERSON ASSIST. PT REPORTS BEING ABLE TO SLEEP FOR A FEW HOURS THROUGH THE NIGHT AND STATES IT IS THE FIRST TIME SHE SLEPT SINCE BEING HERE. PT USED THE CALL LIGHT APPROPRIATELY TO USE THE BEDPAN FOR A BM. BRYAN IN PLACE AND DRAINING TO GRAVITY. WILL REPORT TO DAYSMARION WEEKS.
--- NOTE | 2022-02-08 07:54 | NUR ---
NURSING PCU DAYSHIFT: Assumed care of pt at approx 0700. A/O, fairly cooperative though has c/o all aspects of care and hospitalization. Follows most commands, though states, "I can be stubborn." C/O 10 general pain r/t recent falls at home and neuropathy, denies needs for medications currently available on emar. Skin is dry and intact, scattered bruising t/o, redness to b/l feet, marked/outlined. Tele in place, NSR, no c/o CP/pressure, SBP 156, trace-1+ b/l pedal edema, pulses palp. L/S with I/E wheezes t/o, denies dyspnea at rest, harsh dry/HEAD WAITER/WAITRESS BANQUET cough, O2 sat mid to upper 90's on RA. Abd SNT, BT+, FC w/stat lock present and draining w/o difficulty. PIV x1, s/l. No s/s of acute distress this a.m. Worked w/P.T. and ambulated approx 20ft around room using FWW and gait belt, weak and needed verbal cues for positioning. Currently OOB in chair, linen change completed. Call light in reach, able to use w/o difficulty, denies any current needs, awaiting rounding from PMD, cont to monitor for any changes.
[2022-02-08] MEDS ORDERED: CEFP200 PO (10:03)
--- NOTE | 2022-02-08 12:45 | NUR ---
NURSING PCU DISCHARGE SUMMARY: No significant changes noted t/o the shift. Seen by primary resident team, discharge home d/o received. Pt and daughter in law verbalized understanding of all written and verbal discharge instructions. Rx sent to [facility] per pt request. PIV and FC dc'd by PCT, post FC removal void w/o difficulty. No s/s of acute distress at time of discharge. Escorted from unit via w/c accompanied by PCT and family at approx 1230.
== END 2022-02-08 12:30 | disposition home health service (06) | DRG 871 ==
LOC: ER 14:32 → PCU 22:06
PROVIDERS: Family Medicine; Student in an Organized Health Care Education/Training Program; ADMIT Family Medicine
DX: A41.9 Sepsis, unspecified organism (principal); G92.8 Other toxic encephalopathy; J18.9 Pneumonia, unspecified organism; J69.0 Pneumonitis due to inhalation of food and vomit; N39.0 Urinary tract infection, site not specified; N17.9 Acute kidney failure, unspecified; N18.9 Chronic kidney disease, unspecified; E87.6 Hypokalemia; R29.6 Repeated falls; I12.9 Hypertensive chronic kidney disease with stage 1 through stage 4 chronic kidney disease, or unspecified chronic kidney disease; G40.909 Epilepsy, unspecified, not intractable, without status epilepticus; M51.9 Unspecified thoracic, thoracolumbar and lumbosacral intervertebral disc disorder; G43.709 Chronic migraine without aura, not intractable, without status migrainosus; J45.909 Unspecified asthma, uncomplicated; G35 Multiple sclerosis; F17.210 Nicotine dependence, cigarettes, uncomplicated; B97.4 Respiratory syncytial virus as the cause of diseases classified elsewhere; B96.1 Klebsiella pneumoniae [K. pneumoniae] as the cause of diseases classified elsewhere; F32.A Depression, unspecified; Z20.822 Contact with and (suspected) exposure to COVID-19; Z79.899 Other long term (current) drug therapy; Z88.5 Allergy status to narcotic agent; Z88.8 Allergy status to other drugs, medicaments and biological substances; Z79.811 Long term (current) use of aromatase inhibitors; Z79.891 Long term (current) use of opiate analgesic; Z79.2 Long term (current) use of antibiotics; Z79.51 Long term (current) use of inhaled steroids; Z90.49 Acquired absence of other specified parts of digestive tract; Z87.442 Personal history of urinary calculi; Z87.820 Personal history of traumatic brain injury; Z87.42 Personal history of other diseases of the female genital tract; Z90.710 Acquired absence of both cervix and uterus; Z90.722 Acquired absence of ovaries, bilateral
CPT/HCPCS: 0241U; 36415; 70450; 71045; 73030; 73630; 74176; 80048; 80053; 80164; 81001; 82140; 83605; 85025; 87077; 87086; 87186; 92610; 94640; 94664; 97110; 97162; 99285-25; A9270; J0696; J1650; J3480; J7050; J7120

== ENCOUNTER 2022-09-03 15:58 | Emergency (ER) | payer OTHER ==
[~2022-09-03] VITALS: Ht 175.3 cm; Wt 90.7 kg
[~2022-09-03 15:58] MED LIST changes: +CEFP200 PO
[2022-09-03 16:42] LABS: Source, Urine Clean Catch
[2022-09-03 16:43] LABS: BASOPHILS ABSOLUTE AUTO 0.02 K/mm3 (0.00-0.23); BASOPHILS PERCENT AUTO 0 % (0-2); EOSINOPHILS ABSOLUTE AUTO 0.05 K/mm3 (0.00-0.68); EOSINOPHILS PERCENT AUTO 1 % (0-6); Hematocrit 36.1 % (33.0-51.0); Hemoglobin 11.7 g/dL (11.5-16.0); IMMATURE GRAN ABSOLUTE AUTO 0.01 K/mm3 (0.00-0.10); IMMATURE GRAN PERCENT AUTO 0 % (0-1); LYMPHOCYTES ABSOLUTE AUTO 1.48 K/mm3 (0.84-5.20); LYMPHOCYTES PERCENT AUTO 31 % (21-46); MONOCYTES ABSOLUTE AUTO 0.55 K/mm3 (0.16-1.47); MONOCYTES PERCENT AUTO 12 % (4-13); Mean Corpuscular HGB Conc 32.4 g/dL (31.5-36.5); Mean Corpuscular Volume 96 fL (80-100); Mean Platelet Volume 10.2 fL (9.1-12.4); NEUTROPHILS ABSOLUTE AUTO 2.65 K/mm3 (1.96-9.15); NEUTROPHILS PERCENT AUTO 56 % (41-73); Platelet Count 207 K/mm3 (150-400); RDW Coefficient Variation 13.2 % (11.7-14.2); RDW Standard Deviation 46.5 fL (35.1-46.3); Red Blood Cell Count 3.78 M/mm3 (3.80-5.20); White Blood Cell Count 4.76 K/mm3 (4.00-11.30)
[2022-09-03 16:45] LABS: Appearance, Urine Cloudy (Clear); Bilirubin, Urine Neg (Neg); Blood, Urine 5+ (Neg); Color, Urine Yellow (P-Yellow); Glucose Qualitative, Urine Neg (Neg); Ketones, Urine 1+ (Neg); Leukocyte Esterase, Urine 3+ (Neg); Nitrite, Urine Neg (Neg); Protein, Urine 3+ (Neg); Urobilinogen, Urine NORM (Normal)
[2022-09-03 17:00] LABS: Bacteria Many /hpf; Granular Casts 0-2 /lpf (0); Red Blood Cells, Urine 25-50 /hpf (0-2); Renal Epithelial Few /hpf (0-Rare); Squamous Epithelial Cells Many /hpf (Few); Transitional Epithelial Cells Few /hpf (0-Rare); White Blood Cells, Urine TNTC /hpf (0-5)
[2022-09-03 18:37] LABS: Albumin, Blood 3.2 g/dL (3.4-5.0); Albumin/Globulin Ratio 0.8 (0.8-1.8); Bilirubin, Total 0.3 mg/dL (0.1-1.0); Bun/Creatinine Ratio 13.3 (12.0-20.0); Calcium, Blood 8.7 mg/dL (8.5-10.1); Creatinine, Blood 0.75 mg/dL (0.40-1.00); Potassium, Blood 3.6 mmol/L (3.5-5.5); Total Protein, Blood 7.2 g/dL (6.4-8.2)
[2022-09-03] MEDS ORDERED: CEFP200 PO (19:14)
[2022-09-03 19:45] VITALS: BP 148/88
== END 2022-09-03 19:55 | disposition home or self-care (01) ==
LOC: ER 15:58
PROVIDERS: Physician Assistant
DX: N30.01 Acute cystitis with hematuria (principal); Z88.8 Allergy status to other drugs, medicaments and biological substances; Z88.5 Allergy status to narcotic agent; Z79.899 Other long term (current) drug therapy; F17.210 Nicotine dependence, cigarettes, uncomplicated; J45.909 Unspecified asthma, uncomplicated; I10 Essential (primary) hypertension; G40.909 Epilepsy, unspecified, not intractable, without status epilepticus
CPT/HCPCS: 74177; 80053; 81001; 85025; 87077; 87086; 87186; 96365-59; 99284-25; J0696; J1885; J7030; Q9967

== ENCOUNTER 2022-11-25 17:34 | Emergency (ER) | payer OTHER ==
[~2022-11-25] VITALS: Ht 175.3 cm; Wt 104.3 kg
[2022-11-25 19:30] VITALS: BP 135/79
== END 2022-11-25 20:45 | disposition home or self-care (01) ==
LOC: ER 17:34
DX: S09.90XA Unspecified injury of head, initial encounter (principal); M54.50 Low back pain, unspecified; M25.551 Pain in right hip; W18.30XA Fall on same level, unspecified, initial encounter; Z88.5 Allergy status to narcotic agent; Z88.8 Allergy status to other drugs, medicaments and biological substances; Z79.51 Long term (current) use of inhaled steroids; Z79.899 Other long term (current) drug therapy; Z79.890 Hormone replacement therapy; F17.210 Nicotine dependence, cigarettes, uncomplicated; Z87.442 Personal history of urinary calculi; J45.909 Unspecified asthma, uncomplicated; G43.909 Migraine, unspecified, not intractable, without status migrainosus; I10 Essential (primary) hypertension; G40.909 Epilepsy, unspecified, not intractable, without status epilepticus; Z86.73 Personal history of transient ischemic attack (TIA), and cerebral infarction without residual deficits
CPT/HCPCS: 70450; 72100; 72125; 72170; 96374; 96375; 99284-25; J1170; J2270; J2405

== ENCOUNTER → 2024-02-08 | Outpatient (CLI) | payer OTHER ==
[~2024-02-08] MED LIST changes: +ATOR10 PO; +LISINOPRIL PO; +NIFE10 PO; +ONDA4 PO; -PRINIVIL10 MG PO
[2024-02-08 18:39] LABS: BASOPHILS ABSOLUTE AUTO 0.06 K/mm3 (0.00-0.23); BASOPHILS PERCENT AUTO 1 % (0-2); EOSINOPHILS PERCENT AUTO 2 % (0-6); Hematocrit 36.7 % (33.0-51.0); Hemoglobin 11.7 g/dL (11.5-16.0); IMMATURE GRAN ABSOLUTE AUTO 0.01 K/mm3 (0.00-0.10); IMMATURE GRAN PERCENT AUTO 0 % (0-1); LYMPHOCYTES ABSOLUTE AUTO 1.37 K/mm3 (0.84-5.20); LYMPHOCYTES PERCENT AUTO 29 % (21-46); MONOCYTES ABSOLUTE AUTO 0.24 K/mm3 (0.16-1.47); MONOCYTES PERCENT AUTO 5 % (4-13); Mean Corpuscular HGB 31.3 pg (26.0-34.0); Mean Corpuscular HGB Conc 31.9 g/dL (31.5-36.5); Mean Corpuscular Volume 98 fL (80-100); Mean Platelet Volume 10.2 fL (9.1-12.4); NEUTROPHILS ABSOLUTE AUTO 3.02 K/mm3 (1.96-9.15); NEUTROPHILS PERCENT AUTO 63 % (41-73); Platelet Count 269 K/mm3 (150-400); RDW Coefficient Variation 13.9 % (11.7-14.2); RDW Standard Deviation 50.1 fL (35.1-46.3); Red Blood Cell Count 3.74 M/mm3 (3.80-5.20)
[2024-02-08 19:33] LABS: Albumin, Blood 3.3 g/dL (3.4-5.0); Albumin/Globulin Ratio 0.8 (0.8-1.8); Bilirubin, Total 0.3 mg/dL (0.1-1.0); Bun/Creatinine Ratio 20.3 (12.0-20.0); Calcium, Blood 9.2 mg/dL (8.5-10.1); Creatinine, Blood 0.89 mg/dL (0.40-1.00); Globulin, Blood 3.9 g/dL (2.2-4.0); Phosphorus, Blood 4.3 mg/dL (2.5-4.9); Potassium, Blood 3.9 mmol/L (3.5-5.5); Total Protein, Blood 7.2 g/dL (6.4-8.2)
== END ==
LOC: LAB 17:19 → LAB SHORT 17:19
PROVIDERS: Internal Medicine Hematology & Oncology
DX: D64.9 Anemia, unspecified (principal)
CPT/HCPCS: 80053; 82728; 83540; 83550; 84100; 85025

== ENCOUNTER 2024-04-22 11:58 | Emergency (ER) | payer OTHER ==
[~2024-04-22] VITALS: Ht 162.6 cm; Wt 99.8 kg
[2024-04-22] MEDS ORDERED: Ketorolac Tromethamine 15mg Vial IV ONE (15:10)
[2024-04-22] MEDS ORDERED: Propofol 10mg/ml 20 ml Vial (Procedural) IV SCH (16:00)
[2024-04-22] MEDS ORDERED: NS 1,000 ML IV ONE (16:01)
[2024-04-22 16:19] VITALS: BP 140/84
[2024-04-22] MEDS ORDERED: PROM25 PO (16:30)
[2024-04-22] MEDS ORDERED: Prinivil10 MG PO (16:30)
[2024-04-22] MEDS ORDERED: OMEP20ER PO (16:30)
[2024-04-22] MEDS ORDERED: TOPI100 PO (16:31)
[2024-04-22] MEDS ORDERED: ALLOPURINOL100 M1 PO (16:31)
[2024-04-22] MEDS ORDERED: ADALAT CC30 M1 PO (16:31)
[2024-04-22] MEDS ORDERED: OXYCODONE-ACET1 EAC2 PO (16:31)
[2024-04-22] MEDS ORDERED: OxyCODONE 10/Acetamin 325 TABLET PO ONE (17:00)
== END 2024-04-22 17:43 | disposition home or self-care (01) ==
LOC: ER 11:58
DX: S52.571A Other intraarticular fracture of lower end of right radius, initial encounter for closed fracture (principal); I10 Essential (primary) hypertension; J45.909 Unspecified asthma, uncomplicated; F17.210 Nicotine dependence, cigarettes, uncomplicated; Z88.5 Allergy status to narcotic agent; Z88.8 Allergy status to other drugs, medicaments and biological substances; Z79.899 Other long term (current) drug therapy; W01.0XXA Fall on same level from slipping, tripping and stumbling without subsequent striking against object, initial encounter
CPT/HCPCS: 73100; 73110; A9270; J1885; J2704; J7030

== ENCOUNTER 2024-08-18 11:08 | Emergency (ER) | payer OTHER ==
[~2024-08-18] VITALS: Ht 165.1 cm; Wt 90.7 kg
[~2024-08-18 11:08] MED LIST changes: +ADALAT CC30 M1 PO; +ALLOPURINOL100 M1 PO; +OMEP20ER PO; +OXYCODONE-ACET1 EAC2 PO; +Prinivil10 MG PO; +TOPI100 PO
[2024-08-18 11:15] VITALS: BP 132/90
[2024-08-18] MEDS ORDERED: Lidocaine 4% 1 Patch TOP ONE (11:20)
[2024-08-18] MEDS ORDERED: OxyCODONE 10/Acetamin 325 TABLET PO ONE (13:15)
== END 2024-08-18 14:04 | disposition home or self-care (01) ==
LOC: ER 11:08
DX: S52.501A Unspecified fracture of the lower end of right radius, initial encounter for closed fracture (principal); S20.211A Contusion of right front wall of thorax, initial encounter; G43.909 Migraine, unspecified, not intractable, without status migrainosus; J45.909 Unspecified asthma, uncomplicated; I10 Essential (primary) hypertension; F17.210 Nicotine dependence, cigarettes, uncomplicated; Z86.73 Personal history of transient ischemic attack (TIA), and cerebral infarction without residual deficits; Z88.5 Allergy status to narcotic agent; Z88.6 Allergy status to analgesic agent; Z88.3 Allergy status to other anti-infective agents; Z88.8 Allergy status to other drugs, medicaments and biological substances; Z79.899 Other long term (current) drug therapy; Z59.89 Other problems related to housing and economic circumstances; W18.30XA Fall on same level, unspecified, initial encounter
CPT/HCPCS: 29105; 71046; 73110; 99284-25; A9270

== ENCOUNTER 2024-09-13 11:49 | Inpatient (IN) | payer OTHER ==
[~2024-09-13] VITALS: Ht 167.6 cm; Wt 97.0 kg
[2024-09-13] VITALS (39 sets, daily range): BP systolic 81–125; BP diastolic 27–85
[2024-09-13] MEDS ORDERED: NS 1,000 ML IV ONE (11:55)
[2024-09-13] MEDS ORDERED: NS 1,000 ML IV SCH ×2 (12:00→16:10)
[2024-09-13 12:25] LABS: BASOPHILS PERCENT AUTO 0 % (0-2); EOSINOPHILS ABSOLUTE AUTO 0.01 K/mm3 (0.00-0.68); EOSINOPHILS PERCENT AUTO 0 % (0-6); Hematocrit 20.0 % (33.0-51.0); Hemoglobin 6.4 g/dL (11.5-16.0); IMMATURE GRAN ABSOLUTE AUTO 0.20 K/mm3 (0.00-0.10); IMMATURE GRAN PERCENT AUTO 2 % (0-1); MONOCYTES ABSOLUTE AUTO 0.93 K/mm3 (0.16-1.47); MONOCYTES PERCENT AUTO 8 % (4-13); Mean Corpuscular HGB Conc 32.0 g/dL (31.5-36.5); Mean Corpuscular Volume 91 fL (80-100); NEUTROPHILS PERCENT AUTO 86 % (41-73); RDW Coefficient Variation 15.4 % (11.7-14.2); RDW Standard Deviation 51.0 fL (35.1-46.3)
[2024-09-13 12:26] LABS: BASOPHILS ABSOLUTE AUTO 0.03 K/mm3 (0.00-0.23); LYMPHOCYTES ABSOLUTE AUTO 0.55 K/mm3 (0.84-5.20); LYMPHOCYTES PERCENT AUTO 5 % (21-46); NEUTROPHILS ABSOLUTE AUTO 10.46 K/mm3 (1.96-9.15); NRBC ABSOLUTE 0.00 K/mm3 (0.00-0.02); NRBC Auto 0.0 /100 WBC (0.0-0.2)
[2024-09-13 12:31] LABS: Source, Urine Straight Cath
[2024-09-13 12:46] LABS: Color, Urine Amber (P-Yellow); Glucose Qualitative, Urine Neg (Neg); Ketones, Urine 1+ (Neg); Leukocyte Esterase, Urine 2+ (Neg); Protein, Urine 3+ (Neg); Specific Gravity, Urine 1.015 (1.003-1.022); Urobilinogen, Urine 1+ (Normal)
[2024-09-13 12:53] LABS: Bilirubin, Urine 1+ (Neg)
[2024-09-13 12:56] LABS: Red Blood Cells, Urine 25-50 /hpf (0-2); White Blood Cells, Urine 50-100 /hpf (0-5)
[2024-09-13] MEDS ORDERED: NS 500 ML IV SCH (13:15)
[2024-09-13 13:23] LABS: Alanine Aminotransfer (ALT/SGP 13.0 U/L (12-78); Albumin, Blood 1.4 g/dL (3.4-5.0); Albumin/Globulin Ratio 0.3 (0.8-1.8); Anion Gap 15.0 mmol/L (3-11); Aspartate Aminotrans (AST/SGOT 32.0 U/L (12-37); Bilirubin, Total 0.3 mg/dL (0.1-1.0); Blood Urea Nitrogen 43.0 mg/dL (8-24); CO2, Blood 22.0 mmol/L (21-32); Calcium, Blood 8.1 mg/dL (8.5-10.1); Chloride, Blood 100.0 mmol/L (98-108); Creatinine, Blood 3.91 mg/dL (0.40-1.00); Globulin, Blood 4.8 g/dL (2.2-4.0); Glucose, Blood 82.0 mg/dL (70-99); Potassium, Blood 2.0 mmol/L (3.5-5.5); Sodium, Blood 135.0 mmol/L (136-145); Total Protein, Blood 6.2 g/dL (6.4-8.2)
[2024-09-13] MEDS ORDERED: CefTRIAXone Sodium 2,000 MG in NS 100 ML IV ONE ×2 (13:30→16:40)
[2024-09-13] MEDS ORDERED: FentaNYL Citrate 50 MCG/ML 2 ML Injection ONE (14:14)
[2024-09-13] MEDS ORDERED: NS 1,000 ML IV STA (14:35)
[2024-09-13] MEDS ORDERED: NS 250 ML IV PRN (15:45)
[2024-09-13 16:10] LABS: Ferritin, Serum 941.0 ng/mL (8-252); Total Iron Binding Capacity 112.0 ug/dL (250-450)
[2024-09-13 16:16] LABS: U Cannabinoids Screen DETECTED; U Oxycodone Screen DETECTED
[2024-09-13 16:17] LABS: U Amphetamine Screen Not Detected; U Barbituate Screen Not Detected; U Benzodiazapine Screen Not Detected; U Buprenorphine Screen Not Detected; U Cocaine Screen Not Detected; U Methadone Screen Not Detected; U Methamphetamine Screen Not Detected; U Opiates Screen Not Detected; U Phencyclidine Screen Not Detected
[2024-09-13] MEDS ORDERED: FentaNYL Citrate 50 MCG/ML 2 ML Injection IV PRN (16:20)
[2024-09-13 16:35] LABS: Hematocrit 19.4 % (33.0-51.0); Hemoglobin 6.1 g/dL (11.5-16.0)
[2024-09-13] MEDS ORDERED: NS 250 ML IV ONE (16:37)
[2024-09-13] MEDS ORDERED: Pantoprazole Sodium 40 MG Injection IV SCH (17:00)
--- NOTE | 2024-09-13 18:14 | NUR ---
STAGE ONE PRESSURE ULCER ON SACRUM DR. VILLAFUERTE NOTIFIED OF STAGE ONE PRESSURE ULCER ON SACRUM, PRESENT ON ADMISSION. PHOTO IN CHART.
--- NOTE | 2024-09-13 18:33 | NUR ---
PT ARRIVAL/SHIFT SUMMARY... PT ARRIVED TO THE UNIT APROX 1600. PT IS ON LEVOPHED AT 2MCG/MIN TO KEEP MAPS>65, NS AT WO AND KCL. PT IS A&Ox3 ABLE TO MAKE HER NEEDS KNOW. PT IS IN SR IN THE 90'S. NO SWELLING OR EDEMA NOTED ON THIS ASSESSMENT. PT IS C/O OF 10/10 PAIN TO HER UPPER BACK WITH MOVMENT AND COUGHING. L/S TO THE RUL ARE COARSE AND DIM HER [place] AND BILATERAL LOWER LOBES ARE CLEAR AND DIM. PT WAS ON 3L NC UPON ADMIT THIS WAS STOPPED D/T O2 SATS AT 100%. TEMP BRYAN WAS PLACED FOR STRICT I'S AND O'S, PT'S URINE IS DARK ABMER ALMOST TEA COLORED. PT HAS A STAGE 1 PRESSURE ULCER TO HER SACRUM THAT WAS PRESENT ON ADMIT, PT STATES SHE SPENDS "A LOT" OF TIME IN HER CHAIR AT HOME. DR. VILLAFUERTE WAS NOTIFIED OF THE PRESSURE ULCER. PT WAS TAKEN TO CT FOR CHEST/ABD/PELVIS. BLOOD TRANSFUSION OF PRBCs STARTED PER ORDERS FOR HGB OF 6.1. THE LEVOPHED WAS STOPPED AT 1730 BPs HAVE BEEN SOFT BUT MAPS HAVE BEEN >65. PT'S S.O. FRANCISCO AT THE BEDSIDE.
[2024-09-13] MEDS ORDERED: Doxycycline Hyclate 100 MG in Dextrose 5% 250 ML IV SCH (21:00)
[2024-09-14] VITALS (60 sets, daily range): BP systolic 87–152; BP diastolic 42–109
[2024-09-14 02:18] LABS: Hematocrit 23.5 % (33.0-51.0); Hemoglobin 7.5 g/dL (11.5-16.0)
[2024-09-14 05:54] LABS: Hematocrit 23.3 % (33.0-51.0); Hemoglobin 7.5 g/dL (11.5-16.0); Mean Corpuscular HGB Conc 32.2 g/dL (31.5-36.5); Mean Corpuscular Volume 90 fL (80-100); NRBC ABSOLUTE 0.00 K/mm3 (0.00-0.02); NRBC Auto 0.0 /100 WBC (0.0-0.2); Platelet Count 311 K/mm3 (150-400); RDW Coefficient Variation 16.4 % (11.7-14.2); RDW Standard Deviation 53.6 fL (35.1-46.3)
[2024-09-14 06:14] LABS: BAND PERCENT MAN 25 % (0-8); BASOPHILS ABSOLUTE MAN 0.00 K/mm3 (0.00-0.23); BASOPHILS PERCENT MAN 0 % (0-2); EOSINOPHILS ABSOLUTE MAN 0.00 K/mm3 (0.00-0.68); EOSINOPHILS PERCENT MAN 0 % (0-6); LYMPHOCYTES ABSOLUTE MAN 0.67 K/mm3 (0.84-5.20); LYMPHOCYTES PERCENT MAN 7 % (21-46); MONOCYTES ABSOLUTE MAN 0.19 K/mm3 (0.16-1.47); MONOCYTES PERCENT MAN 2 % (4-13); NEUTROPHILS ABSOLUTE MAN 8.79 K/mm3 (1.96-9.15); SEG NEUTROPHILS PERCENT MAN 66 % (41-73)
--- NOTE | 2024-09-14 06:22 | NUR ---
SHIFT SUMMERY PT HAS BEEN LETHARGIC, SHE IS ABLE TO ANSWER ALL ORIENTATION QUESTIONS CORRECTLY BUT HER CONVERSATION IS CONFUSED AT TIMES. SHE IS ABLE TO FOLLOW COMMANDS, GENERALIZED WEAKNESS. PT HAS LEVOPHED INFUSING TO MAINTAIN A MAP OF >65, SEE [facility]. SHE HAS BEEN SR ON THE GEAR MILLING MACHINE SET UP OPERATOR. SHE IS ON 3LNC, OXYGEN SAT HAS BEEN GREATER THAN 90%. SHE HAS A PRODUCTIVE COUGH. SHE HAS A BRYAN CATHETER INTACT PATENT AND DRAINING TO GRAVITY. SHE HAS HAD SOME LIQUID STOOL OVERNIGHT. SHE WAS MEDICATED FOR PAIN WHEN REQUESTED, SEE EMAR.
[2024-09-14 06:26] LABS: Anion Gap 11.0 mmol/L (3-11); Blood Urea Nitrogen 46.0 mg/dL (8-24); CO2, Blood 22.0 mmol/L (21-32); Calcium, Blood 7.8 mg/dL (8.5-10.1); Chloride, Blood 109.0 mmol/L (98-108); Creatinine, Blood 2.66 mg/dL (0.40-1.00); Glucose, Blood 90.0 mg/dL (70-99); Potassium, Blood 2.7 mmol/L (3.5-5.5); Sodium, Blood 139.0 mmol/L (136-145)
--- NOTE | 2024-09-14 07:00 | NUR ---
ASSUMED CARE OF PATIENT AT APPROXIMATELY 0700. REPORT RECEIVED FROM MICKY ELIAS. PT ASLEEP DURING BEDSIDE REPORT. CONTINUOUS CARDIAC MONITORING IN PLACE, BP STABLE c MAP > 65. ON 3LPM O2 VIA NC. BRYAN PATENT AND DRAINING TO GRAVITY. RIJ INFUSING LEVOPHED AT 1 MCG/MIN, NS AT 75 mL/HR. SEE SHIFT ASSESSMENT FOR FULL DETAILS.
[2024-09-14] MEDS ORDERED: Enoxaparin 30 MG/0.3 ML SYR SC SCH (09:00)
[2024-09-14] MEDS ORDERED: OxyCODONE 7.5 mg/Acetam 325 mg TABLET PO PRN (09:15)
[2024-09-14 10:12] LABS: Acinetobacter baumannii DNA Not Detected copy/mL (NOT DETECT); Chlamydia pneumonia Not Detected (NOT DETECT); Enterobacter cloacae DNA Not Detected copy/mL (NOT DETECT); Escherichia coli DNA Not Detected copy/mL (NOT DETECT); Haemophilus influenzae DNA Not Detected copy/mL (NOT DETECT); Klebsiella aerogenes DNA Not Detected copy/mL (NOT DETECT); Klebsiella oxytoca DNA Not Detected copy/mL (NOT DETECT); Klebsiella pneumoniae DNA Not Detected copy/mL (NOT DETECT); Moraxella catarrhalis DNA Not Detected copy/mL (NOT DETECT); Proteus sp DNA Not Detected copy/mL (NOT DETECT); Pseudomonas aeruginosa DNA Not Detected copy/mL (NOT DETECT); Serratia marcescens DNA Not Detected copy/mL (NOT DETECT); Staphylococcus aureus DNA Not Detected copy/mL (NOT DETECT); Streptococcus agalactiae DNA Not Detected copy/mL (NOT DETECT); Streptococcus pneumoniae DNA Not Detected copy/mL (NOT DETECT); Streptococcus pyogenes DNA Not Detected copy/mL (NOT DETECT)
[2024-09-14 10:13] LABS: Human Coronavirus RNA Not Detected (NOT DETECT); Human Metapneumovirus RNA Not Detected (NOT DETECT); Influenza virus A RNA Not Detected (NOT DETECT); Influenza virus B RNA Not Detected (NOT DETECT); Respiratory syncytial Vir RNA Not Detected (NOT DETECT); Rhinovirus+Enterovirus RNA Not Detected (NOT DETECT)
[2024-09-14 12:41] LABS: Magnesium, Blood 1.4 mg/dL (1.6-2.4); Potassium, Blood 3.2 mmol/L (3.5-5.5)
[2024-09-14] MEDS ORDERED: Mag Sulfate 1 GM/D5% 100ML 100 ML IV STA ×2 (12:50→20:58)
--- NOTE | 2024-09-14 14:40 | NUR ---
SPOKE WITH DAUGHTER DAUGHTER GLADYS UPDATED VIA PHONE CALL ON PT STATUS AND PLAN OF CARE
[2024-09-14] MEDS ORDERED: AMOCLA875 PO (16:53)
--- NOTE | 2024-09-14 17:39 | NUR ---
SHIFT SUMMARY PT REMAINED ALERT AND ORIENTED X 4 T/O ENTIRETY OF SHIFT. ABLE TO FOLLOW COMMANDS, MAKE PURPOSEFUL MOVEMENTS, AND MAKE NEEDS KNOWN. TMAX 100.2, NOW AFEBRILE AT 97.7. REPORTED PAIN IN RUE, L SHOULDER, BACK, AND HEADACHE. MEDICATED PER EMAR c GOOD BENEFIT. LEVO ON SB SINCE 844. BP STABLE c MAP MAINTAINING > 65. CONTINUOUS CARDIAC MONITORING SHOWS SR-ST. ON 2LPM O2 VIA NC c O2 SATURATION > 92%. DECREASED APPETITE THIS SHIFT. BRYAN REMAINS PATENT AND DRAINING TO GRAVITY. RIJ DRESSING CHANGED. ABX INFUSING AT THIS TIME, NS INFUSING AT 75 mL/HR. S/O AT BEDSIDE, DAUGHTER CALLED IN EARLIER, BOTH UPDATED ON PLAN OF CARE. WILL CONTINUE TO MONITOR AND REPORT TO ONCOMING RN.
[2024-09-14] MEDS ORDERED: CefTRIAXone Sodium 1,000 MG in NS 100 ML IV SCH (18:00)
[2024-09-14 20:23] LABS: Magnesium, Blood 1.5 mg/dL (1.6-2.4); Potassium, Blood 3.3 mmol/L (3.5-5.5)
[2024-09-15] VITALS (14 sets, daily range): BP systolic 95–122; BP diastolic 55–90
[2024-09-15 05:12] LABS: BASOPHILS ABSOLUTE AUTO 0.01 K/mm3 (0.00-0.23); BASOPHILS PERCENT AUTO 0 % (0-2); EOSINOPHILS ABSOLUTE AUTO 0.03 K/mm3 (0.00-0.68); EOSINOPHILS PERCENT AUTO 1 % (0-6); Hematocrit 21.5 % (33.0-51.0); Hemoglobin 6.9 g/dL (11.5-16.0); IMMATURE GRAN ABSOLUTE AUTO 0.07 K/mm3 (0.00-0.10); IMMATURE GRAN PERCENT AUTO 1 % (0-1); LYMPHOCYTES ABSOLUTE AUTO 0.87 K/mm3 (0.84-5.20); LYMPHOCYTES PERCENT AUTO 15 % (21-46); MONOCYTES ABSOLUTE AUTO 0.42 K/mm3 (0.16-1.47); MONOCYTES PERCENT AUTO 7 % (4-13); Mean Corpuscular HGB Conc 32.1 g/dL (31.5-36.5); Mean Corpuscular Volume 91 fL (80-100); NEUTROPHILS ABSOLUTE AUTO 4.51 K/mm3 (1.96-9.15); NEUTROPHILS PERCENT AUTO 76 % (41-73); NRBC ABSOLUTE 0.00 K/mm3 (0.00-0.02); NRBC Auto 0.0 /100 WBC (0.0-0.2); Platelet Count 246 K/mm3 (150-400); RDW Coefficient Variation 17.1 % (11.7-14.2); RDW Standard Deviation 56.5 fL (35.1-46.3)
[2024-09-15 05:35] LABS: Alanine Aminotransfer (ALT/SGP 10.0 U/L (12-78); Albumin, Blood 1.1 g/dL (3.4-5.0); Albumin/Globulin Ratio 0.3 (0.8-1.8); Anion Gap 10.0 mmol/L (3-11); Aspartate Aminotrans (AST/SGOT 19.0 U/L (12-37); Bilirubin, Total 0.2 mg/dL (0.1-1.0); Blood Urea Nitrogen 39.0 mg/dL (8-24); CO2, Blood 21.0 mmol/L (21-32); Calcium, Blood 8.5 mg/dL (8.5-10.1); Chloride, Blood 115.0 mmol/L (98-108); Creatinine, Blood 1.51 mg/dL (0.40-1.00); Globulin, Blood 4.1 g/dL (2.2-4.0); Glucose, Blood 91.0 mg/dL (70-99); Potassium, Blood 3.6 mmol/L (3.5-5.5); Sodium, Blood 142.0 mmol/L (136-145); Total Protein, Blood 5.2 g/dL (6.4-8.2)
--- NOTE | 2024-09-15 06:24 | NUR ---
SHIFT SUMMERY PT HAS BEEN ALERT AND ORIENTED X4, FOLLOWS COMMANDS BUT HAS SOME CONFUSION AT TIMES WELL. SHE HAS GENERALIZED WEAKNESS. NO BM LAST NIGHT. PT HAS BEEN SR ON THE WELLNESS AMBASSADOR. BP WNL. BRYAN CATHETER INTACT PATENT AND DRAINING TO GRAVITY. SHE IS ON 2L NC AND OXYGEN SAT ARE >95% W/NO EPISODES OF RESP DISTRESS THIS SHIFT. BACK PAIN MEDICATED PER MD ORDERS, SEE EMAR. NO ACUTE CHANGES THIS SHIFT.
--- NOTE | 2024-09-15 09:48 | NUR ---
SHIFT ASSESSMENT ASSUMED CARE OF PT @ 0700, BEDSIDE REPORT RECEIVED FROM [facility] NURSE. PT SLEEPING IN BED, SLOW TO WAKE WITH VERBAL STIMULI. A&OX4, FOLLOWING COMMANDS, STATES SHE IS WEAK. PT NOT HIGHLY MOTIVATED, REQUIRES LOTS OF ENCOURAGEMENT TO PERFORM ADL'S. INITIALLY ON 2LPM O2 VIA NC, DENIES SOB, NOW ON RA c SATS >95%. ABD SOFT, INTERMITTENT TENDERNESS TO RLQ. BRYAN CATH DRAINING LG URINE. 1 UNIT PRBC'S INFUSING.
[2024-09-15 11:34] LABS: Hematocrit 26.6 % (33.0-51.0); Hemoglobin 8.4 g/dL (11.5-16.0); Mean Corpuscular HGB Conc 31.6 g/dL (31.5-36.5); Mean Corpuscular Volume 91 fL (80-100); NRBC ABSOLUTE 0.00 K/mm3 (0.00-0.02); NRBC Auto 0.0 /100 WBC (0.0-0.2); Platelet Count 269 K/mm3 (150-400); RDW Coefficient Variation 17.4 % (11.7-14.2); RDW Standard Deviation 57.6 fL (35.1-46.3)
[2024-09-16 03:43] VITALS: BP 136/75
[2024-09-16 04:05] LABS: Hematocrit 26.4 % (33.0-51.0); Hemoglobin 8.5 g/dL (11.5-16.0); Mean Corpuscular HGB Conc 32.2 g/dL (31.5-36.5); Mean Corpuscular Volume 89 fL (80-100); NRBC ABSOLUTE 0.00 K/mm3 (0.00-0.02); NRBC Auto 0.0 /100 WBC (0.0-0.2); Platelet Count 250 K/mm3 (150-400); RDW Coefficient Variation 18.2 % (11.7-14.2); RDW Standard Deviation 59.5 fL (35.1-46.3)
[2024-09-16 04:20] LABS: Albumin, Blood 1.2 g/dL (3.4-5.0); Anion Gap 9 mmol/L (3-11); Blood Urea Nitrogen 29 mg/dL (8-24); CO2, Blood 20 mmol/L (21-32); Calcium, Blood 8.8 mg/dL (8.5-10.1); Chloride, Blood 117 mmol/L (98-108); Creatinine, Blood 1.01 mg/dL (0.40-1.00); Glucose, Blood 77 mg/dL (70-99); Magnesium, Blood 1.4 mg/dL (1.6-2.4); Phosphorus, Blood 3.6 mg/dL (2.5-4.9); Potassium, Blood 3.4 mmol/L (3.5-5.5); Sodium, Blood 143 mmol/L (136-145)
[2024-09-16] MEDS ORDERED: Magnesium Sulf 2 GM/Water 50ML 50 ML IV ONE (05:05)
--- NOTE | 2024-09-16 06:10 | NUR ---
SHIFT SUMMARY PT IS SOMONLENT & OX2, ABLE TO STATE HER NAME//THAT SHE IS AT [facility], PT UNABLE TO STATE TODAY'S DATE/WHY SHE CAME IN, PT OCCATIONALLY WILL REPEAT HERSELF OR REPEAT THE SAME ANSWER FOR A DIFFERENT QUESTION, Q2 REPOSITIONING, MOVING ALL EXTREMITIES WITH PURPOSE/ RIGHT WRIST IN CAST, OBEYS COMMANDS. CONTINUOUS SPO2, SPO2 GREATER THAN 90% ON RA, LUNGS SOUND DIMINISHED T/O WITH CRACKLES TO RIGHT UPPER LOBE, NO SIGNS OF RESPIRATORY DISTRESS NOTED, PT HAVING OCCASIONALLY MOIST COUGH. CONTINUOUS TELE MONITORING, SINUS 80-90 S, BP STABLE WITH MAP GREATER THAN 65, CAP WNL, PULSES PRESENT T/O, PT DENIES CHEST P/P T/O THIS SHIFT. BOWEL TONES PRESENT IN ALL 4Q. BRYAN CATH IS SECURE/PATENT/DRAINING TO GRAVITY, URINE LG COLOR. PT REPORTING BACK PAIN, MEDICATED PER ORDERS. BED LOWEST POSITION, CALL LIGHT IN REACH, AWAITING TO GIVE REPORT TO ONCOMING RN.
[2024-09-16 07:50] VITALS: BP 109/73
--- NOTE | 2024-09-16 11:36 | NUR ---
AM NOTE/TRANSFER: PT BECOMES MORE ALERT T/OUT THE AM, ORIENTED TO SELF, BEING AT [facility], STATES "I HURT MYSELF" RE: SITUATION, UNSURE OF DATE. PT CAN BE REPETITIVE WHEN ANSWERING QUESTIONS, BUT IS ABLE TO COMMUNICATE NEEDS. PT OOB THIS AM W/TWO PERSON SBA, GAIT BELT, FWW AND WAS ABLE TO TRANSFER SELF TO RECLINER WITH MINIMAL ASSISTANCE. PT DENIES SOB OR CP. O2 SATS >93% ON RA. SR ON MONITOR, RATE 90s. OCCASIONAL, MOIST COUGH NOTED, PT STATES "NOT REALLY" WHEN ASKED IF PRODUCTIVE. APPROPRIATE URINE OUTPUT TO MINISTERIO BRYAN, COMMUNICATED APPROPRIATENESS FOR REMOVAL TO RECEIVING RN IN MEDICAL DEPT. ST BACK THIS AM, NO CHANGES TO ORDERS. PT MEDICATED PER EMAR FOR C/O BACK PAIN. NEW ROOM ASSIGNMENT RECEIVED, REPORT GIVEN TO ÁNGEL WEEKS AND PT TRANSFERED W/OUT INCIDENT. PT's FAMILY/CAREGIVER (GLADYS) UPDATED ABOUT TRANSFER VIA TELEPHONE.
--- NOTE | 2024-09-16 11:53 | NUR ---
1135- PT TO MEDICAL FLOOR IN STABLE CONDITION WHILE RECEIVING REPORT FROM CALL OR CONTACT CENTRE TEAM LEADER ELIECER MOON.
[2024-09-16 17:24] VITALS: BP 124/110
--- NOTE | 2024-09-16 19:43 | NUR ---
SUMMARY- PT AAOX2 TO SELF AND PLACE ONLY. TWO RN SKIN CHECK PERFORMED WITH MICKY SULLIVAN UPON TRANSFER-REFER TO SKIN NOTES. X1-2 ASSIST TO BSC. NO COMPLAINTS OF PAIN. NO ACUTE EVENTS THIS SHIFT. PT ON RA. PT LETHARGIC AND SLEEPING MOST OF DAY SHIFT.
[2024-09-16 19:49] VITALS: BP 123/70
--- NOTE | 2024-09-17 04:27 | NUR ---
SHIFT SUMMARY PATIENT IS ALERT AND ORIENTED X2. PATIENT HAS HAD NO ACUTE EVENTS THIS SHIFT. VITAL SIGNS REVIEWED. PATIENT RECEIVED MEDICATION FOR PAIN PER EMAR THIS SHIFT. PATIENT HAS HAD NO COMPLAINTS OF SOB, NAUSEA OR VOMITTING THIS SHIFT. BED IN LOCKED AND LOWEST POSITION. CALL LIGHT IN PLACE.
[2024-09-17 05:23] VITALS: BP 129/61
[2024-09-17 07:31] VITALS: BP 128/74
[2024-09-17] MEDS ORDERED: Ondansetron HCl 2 MG / ML 2ML Vial IV PRN (12:10)
--- NOTE | 2024-09-17 12:53 | NUR ---
ASSUMED CARE PT CONFUSED AND RESTLESS, PT WAS REPOSITIONED IN BED AND HAS BEEN CRYING OUT IN PAIN. PT PLACED ON PILLOWS AND SKIN CREAM PLACE ON SORES REDENED AREAS. NO SIGNIFICANT BREAKDOWN NOTED.
[2024-09-17 15:19] VITALS: BP 104/66
--- NOTE | 2024-09-17 19:20 | NUR ---
SPOKE WITH DAUGHTER HOMAR WHO IS PT CRANE OILER AND SHE IS AWARE THAT PT MENTATION AND PHYSICAL ABILITY HAS BEEN DECREASING AND THAT SHE MAY NEED A HIGHER LEVEL OF CARE. CASE MANAGEMENT IS AWARE. PT HAS BEEN QUIET AND NOT WANTING TO ANSWER QUESTIONS.
[2024-09-17 20:22] VITALS: BP 143/91
[2024-09-18 05:21] VITALS: BP 122/75
[2024-09-18 07:19] VITALS: BP 112/64
[2024-09-18 08:19] LABS: Hematocrit 29.2 % (33.0-51.0); Hemoglobin 9.1 g/dL (11.5-16.0); Mean Corpuscular HGB Conc 31.2 g/dL (31.5-36.5); Mean Corpuscular Volume 91 fL (80-100); NRBC ABSOLUTE 0.00 K/mm3 (0.00-0.02); NRBC Auto 0.0 /100 WBC (0.0-0.2); Platelet Count 201 K/mm3 (150-400); RDW Coefficient Variation 17.7 % (11.7-14.2); RDW Standard Deviation 59.1 fL (35.1-46.3)
[2024-09-18 08:42] LABS: Albumin, Blood 1.2 g/dL (3.4-5.0); Anion Gap 8 mmol/L (3-11); Blood Urea Nitrogen 26 mg/dL (8-24); CO2, Blood 23 mmol/L (21-32); Calcium, Blood 8.2 mg/dL (8.5-10.1); Chloride, Blood 118 mmol/L (98-108); Creatinine, Blood 0.67 mg/dL (0.40-1.00); Glucose, Blood 83 mg/dL (70-99); Magnesium, Blood 1.5 mg/dL (1.6-2.4); Phosphorus, Blood 3.3 mg/dL (2.5-4.9); Potassium, Blood 3.7 mmol/L (3.5-5.5); Sodium, Blood 145 mmol/L (136-145)
--- NOTE | 2024-09-18 12:47 | NUR ---
HEAD CT PT RETURNED FROM HEADT. 4 ASSIST AND SLIDDER SHEET FROM [facility] TO BED. PT TOELRATED WELL. NO CRYING OUT. CARE ONGOING.
[2024-09-18 16:02] VITALS: BP 117/71
--- NOTE | 2024-09-18 18:09 | NUR ---
SHIFT SUMMARY: PT AOX2. PT UP TO CHAIR SEVERAL TIMES THROUGHOUT SHIFT. PT CONFUSED THROUGHOUT SHIFT. MEDICATED PER EMAR. PT RESTING. NO ACUTE CHANGES.
[2024-09-18 20:13] VITALS: BP 111/66
[2024-09-19 04:41] VITALS: BP 124/70
--- NOTE | 2024-09-19 05:42 | NUR ---
SHIFT SUMMARY PT IS ALERT AND ORIENTED TIMES 2, ADMITTED FOR SHOCK . PT HAS POWER GLIDE IN RIGHT UPPER ARM . AND IS ROOM AIR AT BASELINE AND DOES NOT REQUIRE SUPPLEMENTAL OXYGEN PRESENTLY. PT IS COOPERATIVE WITH CARE AND ABLE TO MAKE NEEDS KNOWN TO STAFF. PT HAS A PUREWICKING SYSTEM INPLACE. PT HAS RED TORRES ON BACK THAT ARE PAINFUL WHEN SHE IS TURNED OR REPOSITIONED. BED IS IN LOW POSITION, CALL LIGHT IS WITHIN REACH, AND RAILS ARE TIMES 2.
[2024-09-19 07:17] LABS: Hematocrit 27.0 % (33.0-51.0); Hemoglobin 8.4 g/dL (11.5-16.0); Mean Corpuscular HGB Conc 31.1 g/dL (31.5-36.5); Mean Corpuscular Volume 92 fL (80-100); NRBC ABSOLUTE 0.00 K/mm3 (0.00-0.02); NRBC Auto 0.0 /100 WBC (0.0-0.2); Platelet Count 172 K/mm3 (150-400); RDW Coefficient Variation 17.5 % (11.7-14.2); RDW Standard Deviation 59.7 fL (35.1-46.3)
[2024-09-19 07:19] VITALS: BP 120/69
[2024-09-19 07:36] LABS: Albumin, Blood 1.2 g/dL (3.4-5.0); Anion Gap 9 mmol/L (3-11); Blood Urea Nitrogen 23 mg/dL (8-24); CO2, Blood 22 mmol/L (21-32); Calcium, Blood 8.1 mg/dL (8.5-10.1); Chloride, Blood 116 mmol/L (98-108); Creatinine, Blood 0.61 mg/dL (0.40-1.00); Glucose, Blood 94 mg/dL (70-99); Magnesium, Blood 1.5 mg/dL (1.6-2.4); Phosphorus, Blood 2.8 mg/dL (2.5-4.9); Potassium, Blood 3.3 mmol/L (3.5-5.5); Sodium, Blood 144 mmol/L (136-145)
[2024-09-19] MEDS ORDERED: Mag Sulfate 1 GM/D5% 100ML 100 ML IV STA (10:08)
[2024-09-19] MEDS ORDERED: Folic Acid 1 MG TAB PO SCH (11:00)
[2024-09-19] MEDS ORDERED: Enoxaparin 40 MG/0.4 ML SYR SC SCH (11:00)
[2024-09-19 16:34] VITALS: BP 120/73
[2024-09-19 20:24] VITALS: BP 128/71
[2024-09-20 05:13] LABS: Anion Gap 10.0 mmol/L (3-11); Blood Urea Nitrogen 20.0 mg/dL (8-24); CO2, Blood 19.0 mmol/L (21-32); Calcium, Blood 7.6 mg/dL (8.5-10.1); Chloride, Blood 115.0 mmol/L (98-108); Creatinine, Blood 0.5 mg/dL (0.40-1.00); Glucose, Blood 81.0 mg/dL (70-99); Magnesium, Blood 1.5 mg/dL (1.6-2.4); Potassium, Blood 4.0 mmol/L (3.5-5.5); Sodium, Blood 140.0 mmol/L (136-145)
[2024-09-20 05:43] LABS: BASOPHILS ABSOLUTE AUTO 0.02 K/mm3 (0.00-0.23); BASOPHILS PERCENT AUTO 0 % (0-2); EOSINOPHILS ABSOLUTE AUTO 0.08 K/mm3 (0.00-0.68); EOSINOPHILS PERCENT AUTO 1 % (0-6); Hematocrit 28.6 % (33.0-51.0); Hemoglobin 8.8 g/dL (11.5-16.0); IMMATURE GRAN ABSOLUTE AUTO 0.06 K/mm3 (0.00-0.10); IMMATURE GRAN PERCENT AUTO 1 % (0-1); LYMPHOCYTES ABSOLUTE AUTO 0.97 K/mm3 (0.84-5.20); LYMPHOCYTES PERCENT AUTO 17 % (21-46); MONOCYTES ABSOLUTE AUTO 0.36 K/mm3 (0.16-1.47); MONOCYTES PERCENT AUTO 6 % (4-13); Mean Corpuscular HGB Conc 30.8 g/dL (31.5-36.5); Mean Corpuscular Volume 92 fL (80-100); NEUTROPHILS ABSOLUTE AUTO 4.14 K/mm3 (1.96-9.15); NEUTROPHILS PERCENT AUTO 74 % (41-73); NRBC ABSOLUTE 0.00 K/mm3 (0.00-0.02); NRBC Auto 0.0 /100 WBC (0.0-0.2); Platelet Count 152 K/mm3 (150-400); RDW Coefficient Variation 17.2 % (11.7-14.2); RDW Standard Deviation 57.9 fL (35.1-46.3)
--- NOTE | 2024-09-20 06:18 | NUR ---
SHIFT SUMMARY PT IS ALERT AND ORIENTED TIMES 2, ADMITTED FOR SHOCK . PT HAS POWER GLIDE IN RIGHT UPPER ARM . PT HAD COMPLAINTS OF PAIN WITH PERIPHERAL IV IN LEFT FOREARM AND WAS SUBSEQUENTLY REMOVED PT HAS POWERGLIDE IN RIGHT UPPER ARM. PT IS ROOM AIR AT BASELINE AND DOES NOT REQUIRE SUPPLEMENTAL OXYGEN PRESENTLY. PT IS COOPERATIVE WITH CARE AND ABLE TO MAKE NEEDS KNOWN TO STAFF. PT HAS A PUREWICKING SYSTEM INPLACE. PT HAS RED TORRES ON BACK THAT ARE PAINFUL WHEN SHE IS TURNED OR REPOSITIONED. BED IS IN LOW POSITION, CALL LIGHT IS WITHIN REACH, AND RAILS ARE TIMES 2.
[2024-09-20 07:34] VITALS: BP 122/72
[2024-09-20] MEDS ORDERED: Mag Sulfate 1 GM/D5% 100ML 100 ML IV STA (09:47)
[2024-09-20] MEDS ORDERED: Furosemide 10 MG / ML 2ML Vial IV SCH (11:00)
--- NOTE | 2024-09-20 12:28 | NUR ---
ASSUMED CARE PT IS A/O X 3 DOING MUCH BETTER TODAY ABLE TO MAKE NEEDS KNOWN AND HAS BEEN CALLING APPROPRIATLY. PHYSICAL THERAPY ATTEMPTED TO WORK WITH PT BUT PT WAS NOT WILLING TO PARTICIPATE, PT C/O CHRONIC PAIN TO BACK LEGS AND ABD.
[2024-09-20 15:55] VITALS: BP 119/71
--- NOTE | 2024-09-20 18:08 | NUR ---
PT DENIED WORKING WITH PHYSICAL T TODAY BUT WAS WILLING TO SIT UP AT SIDE OF BED. PT FED SELF AND HAS BEEN MAKING NEEDS KNOWN. PT REQUESTED TO KEEP PURWIC IN PLACE EVEN THOUGHT SHE IS BEGINNING TO HAVE MODERATE REDDNESS APPEAR. POWDER AND CREAM APPLIED TO RED AREAS. FAMILY AT BEDSIDE PT FEEDING SELF DINNER
[2024-09-20 19:35] VITALS: BP 119/70
--- NOTE | 2024-09-21 03:24 | NUR ---
SHIFT SUMMARY NO ACUTE EVENTS DURING THIS SHIFT. PT IS A/O X3, CONFUSED AT TIMES, SLOW RESPONSES. PUREWICK IN PLACE DRAINING YELLOW COLOR URINE. MEDICATED PER EMAR FOR C/O 10 BACK AND RIBS PAIN. PT RESTING WELL T/O THE NIGHT HRS. VSS. LEFT WRIST REMAINS IN CAST, PT DENIES NUMBESS/TINGLING ON THE DIGITS. BED AT THE LOWEST POSITION, CALL LIGHT W/I REACH. PT IS ABLE TO MAKE HER NEEDS KNOWN AND IS COOPERATIVE WITH CARE.
[2024-09-21 03:58] VITALS: BP 134/79
[2024-09-21 05:44] LABS: Magnesium, Blood 1.7 mg/dL (1.6-2.4)
[2024-09-21 05:45] LABS: Anion Gap 10.0 mmol/L (3-11); Blood Urea Nitrogen 20.0 mg/dL (8-24); CO2, Blood 23.0 mmol/L (21-32); Calcium, Blood 8.1 mg/dL (8.5-10.1); Chloride, Blood 111.0 mmol/L (98-108); Creatinine, Blood 0.55 mg/dL (0.40-1.00); Glucose, Blood 104.0 mg/dL (70-99); Potassium, Blood 3.7 mmol/L (3.5-5.5); Sodium, Blood 140.0 mmol/L (136-145)
[2024-09-21 07:23] VITALS: BP 130/72
--- NOTE | 2024-09-21 11:11 | NUR ---
ASSUMED CARE. A/O X 3, PT SEEMS MORE CLEAR AND TALKATIVE TODAY. PT WAS ABLE TO SIT UP AT SIDE OF BED FOR BREAKFAST BUT DID NOT EAT. PT NOT HUNGRY. PT WAS ASSISTED BACK IN BED, FERNANDO CARE PREFORMED AND REDDENED AREA COVERED WITH SKIN CREAM. PT C/O EXCESSIVE PAIN AND IS NOT CURRENTLY WILLING TO DO EXTENDED PHYSICAL THERAPY. PT MEDICATED FOR PAIN AND WILL CONT MONITORING. DR HERNANDEZ AT BEDSIDE.
[2024-09-21 15:01] VITALS: BP 121/84
--- NOTE | 2024-09-21 19:12 | NUR ---
HAD LONG DISCUSSION WITH PT ABOUT GETTING OUT OF BED, PT DECIDED SHE NEEDED TO PUSH SELF, PT WAS ABLE TO STAND AT BEDSIDE USING FWW AND THEN TRANSFER TO CHAIR. PT HAS REMAINED IN CHAIR FOR SEVERAL HOURS AND WAS ABLE TO FEED SELF. SAKSHI WELL .
[2024-09-21 19:47] VITALS: BP 121/66
--- NOTE | 2024-09-22 03:00 | NUR ---
SHIFT SUMMARY NO ACUTE EVENTS DURING THIS SHIFT. MEDICATED PER EMAR FOR 11/29 PAIN T/O THE BODY. PT RESTING WELL T/O THE NIGHT. VSS. BED AT THE LOWEST POSITION, CALL LIGHT W/I REACH. PT CONTINUES WITH LAWRENCE.
[2024-09-22 04:50] VITALS: BP 120/78
[2024-09-22 05:14] LABS: Anion Gap 8.0 mmol/L (3-11); Blood Urea Nitrogen 21.0 mg/dL (8-24); CO2, Blood 29.0 mmol/L (21-32); Calcium, Blood 8.0 mg/dL (8.5-10.1); Chloride, Blood 108.0 mmol/L (98-108); Creatinine, Blood 0.66 mg/dL (0.40-1.00); Glucose, Blood 78.0 mg/dL (70-99); Potassium, Blood 3.9 mmol/L (3.5-5.5); Sodium, Blood 141.0 mmol/L (136-145)
[2024-09-22 07:39] VITALS: BP 102/69
[2024-09-22] MEDS ORDERED: Protein Supplement 30 ML UD PO SCH (09:00)
--- NOTE | 2024-09-22 12:35 | NUR ---
ASSUMED CARE. PT DOING VERY WELL TODAY WAS A/O AND WANTING TO GET OOB TO CHAIR. PT WAS ENC TO AMB TO BATH ROOM AND DID VERY WELL USING FWW. PT IN GOOD SPIRITS AND DISCUSSED POSSIBLY ORDERING FOOD SHE WOULD ENJOY OFF THE MENU. DIETITIAN NOTIFIED AND MD AWARE, OF PROGRESS AND NEED FOR BETTER NURTITION. DENTAL CONSULT PLACED FOR PT.
[2024-09-22 15:35] VITALS: BP 119/65
--- NOTE | 2024-09-22 15:35 | NUR ---
PT'S LUIS ANTONIO GRAHAM ASKED THIS PC RN TO SEE PT RE: ADVANCE CARE PLANNING. PT NOT ABLE TO MEANINGFULLY PARTICIPATE IS CONVERSATION OR HER CARES. GLADYS IS AGREEABLE TO HOLD OFF ON FUTURE GOALS CONVERSATION UNTIL PT HAS A CHANCE FOR CURRENT TX PLAN TO TAKE EFFECT.
--- NOTE | 2024-09-22 17:46 | NUR ---
PT DOING WELL, DAUGHTER INLMERLY TO BRING PT [employer] FOR DINNER. PT IN BED AND WILL GET UP TO BED WHEN SHE ARRIVES
[2024-09-22 19:24] VITALS: BP 119/70
--- NOTE | 2024-09-23 04:00 | NUR ---
SHIFT SUMMARY NO ACUTE EVENTS DURING THIS SHIFT. PT AMBULATING INDEPENDENTLY WITH FWW TO THE RESTROOM. AT HS, PT'S DAUGHTER AND GRAND CHILDREN BY THE BEDSIDE. PT ATE DINNER WELL, SMILING, IN GOOD SPIRITS, A/O X4. MEDICATED FOR C/O 10/10 BACK PAIN PER EMAR. BED AT THE LOWEST POSITION, CALL LIGHT W/I REACH. PT IS ABLE TO MAKE HER NEEDS KNOWN.
[2024-09-23 04:49] VITALS: BP 102/70
[2024-09-23 07:39] VITALS: BP 113/62
--- NOTE | 2024-09-23 11:41 | NUR ---
ASSUMED CARE PT IS A/O X 4 AND VERY AWAKE AND TALKATIVE. REQUESTING PAIN MEDICATION BEFORE GETTING OOB. PT WAS ASSISTED TO THE BATHROOM AND THEN TO CHAIR, FEET VERY EDEMATOUS AND DIFFICULT TO WALK ON BUT PT SAKSHI WELL USING FWW.
[2024-09-23] MEDS ORDERED: Furosemide 10 MG / ML 2ML Vial IV SCH (18:00)
[2024-09-23] MEDS ORDERED: Albumin (Human) 25gm/100ml 100 ML IV SCH (18:00)
--- NOTE | 2024-09-23 19:18 | NUR ---
PT CONTINUES TO WORK VERY WELL TODAY AND IS LOOKING FORWARD TO POSSIBLE DC IN MONDAY, PT CONT TO CALL APPROPRIATLY ALBUMIN GIVEN THIS EVENING TO HELP WITH EDEMA.
[2024-09-23 19:40] VITALS: BP 134/69
[2024-09-24 02:48] VITALS: BP 130/74
--- NOTE | 2024-09-24 05:04 | NUR ---
SHIFT SUMMARY NOC PT A/O X 3-4. A LITLE FORGETFUL AT NIGHT. VSS. NO ACUTE CHANGES TO REPORT. PT USING BATHROOM FREQUENTLY DUE TO DIURESING AND IS 1PA FWW/GB TO BATHROOM. PT PAIN BEING MANAGED PER EMAR. PT HAS CAST ON R ARM FROM RECENT FALL. PT AWAITING SNF BED FOR DISCHARGE. PT CURRENTLY RESTING WITH BED ALARM ON, BED IN LOWEST POSITION. AND CALL LIGHT WITHIN REACH.
[2024-09-24 06:16] LABS: Anion Gap 12.0 mmol/L (3-11); Blood Urea Nitrogen 20.0 mg/dL (8-24); CO2, Blood 25.0 mmol/L (21-32); Calcium, Blood 8.0 mg/dL (8.5-10.1); Chloride, Blood 104.0 mmol/L (98-108); Creatinine, Blood 0.58 mg/dL (0.40-1.00); Glucose, Blood 78.0 mg/dL (70-99); Potassium, Blood 4.5 mmol/L (3.5-5.5); Sodium, Blood 136.0 mmol/L (136-145)
[2024-09-24 07:30] VITALS: BP 121/72
--- NOTE | 2024-09-24 14:00 | NUR ---
SUPPORTIVE VISIT FOR PT AND FAMILY. PT'S UPPER DENTURE RESTING ON HER LOWER LIP WHEN TALKING. DENTURES DO NOT FIT PROPERLY. DENTAL HYGENIST TO SEE PT FOR EVALUATION. PLAN: REVIEW AND FILL OUT ADVANCE DIRECTIVE WITH PT TOMORROW 09/25/24 PRIOR TO D/C HOME WITH HOME HEALTH.
[2024-09-24 15:49] VITALS: BP 117/62
--- NOTE | 2024-09-24 18:25 | NUR ---
SHIFT SUMMARY NO ACUTE CHANGES, A/Ox4, ABLE TO MAKE NEEDS KNOWN, USES CALL LIGHT APPROPRIATELY. ABLE TO AMBULATE INDEPENDENTLY WITH FWW TO BSC - STAFF PRESENT FOR SAFETY WITH ANY AMBULATION TODAY DESPITE PT IMPROVEMENT DUE TO RECENT FALLS. MEDICATED PER EMAR FOR PAIN. EDEMA IMPROVING. POSSIBLE DC TOMORROW HOME WITH HH. AWAITING UNTIL PT BACK IN BED AFTER DINNER TO START 1800 ALBUMIN PER PT REQUEST. IV SALINE LOCKED AT THIS TIME. PT CURRENTLY RESTING IN CHAIR EATING DINNER, CALL LIGHT WITHIN REACH.
[2024-09-24 20:15] VITALS: BP 140/88
--- NOTE | 2024-09-25 06:39 | NUR ---
SHIFT SUMMARY A&OX4. ABLE TO MAKE ALL NEEDS KNOWN. GETS UP AD LAW WITH FWW TO BSC. USES CALL LIGHT APPROPRIATELY FOR ASSISTANCE. EDEMA REMAINS PRESENT IN BLE. PT REPORTS FEET HURTING BUT FEEL BETTER WHEN LEGS ARE ELEVATED. EDUCATED ON HOW EDEMA CAN CAUSE THIS FEEING DUE TO THE EXCESS FLUID. PT V/U.PT RESTING IN BED AT LOWEST POSITION WITH RAILS X2 UP AND CALL LIGHT WITHIN REACH.
[2024-09-25 08:14] VITALS: BP 147/86
[2024-09-25 08:55] LABS: Anion Gap 9.0 mmol/L (3-11); Blood Urea Nitrogen 20.0 mg/dL (8-24); CO2, Blood 35.0 mmol/L (21-32); Calcium, Blood 8.5 mg/dL (8.5-10.1); Chloride, Blood 96.0 mmol/L (98-108); Creatinine, Blood 0.69 mg/dL (0.40-1.00); Glucose, Blood 82.0 mg/dL (70-99); Magnesium, Blood 1.5 mg/dL (1.6-2.4); Potassium, Blood 3.2 mmol/L (3.5-5.5); Sodium, Blood 137.0 mmol/L (136-145)
[2024-09-25] MEDS ORDERED: Mag Sulfate 1 GM/D5% 100ML 100 ML IV STA (09:48)
--- NOTE | 2024-09-25 11:00 | NUR ---
ATTEMPTED TO REVIEW AND FILL OUT ADVANCE DIRECTIVE. PT IS DISTRACTED WITH D/C PLANS AND GOING TO HER DIL'S HOME INSTEAD OF HER HOME. PT DOES NOT WANT TO GO TO SNF. PT DECLINED TO FILL OUT DIRECTIVE AT THIS TIME. DIRECTIVE GIVEN TO PT TO TAKE HOME FOR REVIEW.
[2024-09-25] MEDS ORDERED: ACET325 PO (11:29)
[2024-09-25] MEDS ORDERED: Calcium Carbon500 MG PO (11:29)
[2024-09-25] MEDS ORDERED: GABA100 PO (11:31)
[2024-09-25] MEDS ORDERED: FOLI1 PO (11:31)
[2024-09-25] MEDS ORDERED: POTA10T PO (11:32)
[2024-09-25] MEDS ORDERED: OMEP20ER PO (11:32)
[2024-09-25] MEDS ORDERED: FURO20 PO (11:33)
[2024-09-25 15:24] VITALS: BP 125/80
--- NOTE | 2024-09-25 17:53 | NUR ---
DISCHARGE: PT D/C @ 1740 VIA WHEELCHAIR WITH DAUGHTER IN LAW. MEDICATIONS FAXED TO [facility]. ALL BELONGINGS SENT WITH PT. PT TO CALL [facility] D/C FOR WALKER AND BSC. DAUGHTER IN LAW PICKED UP MATTRESS FOR PT PRIOR TO D/C. POWERGLIDE REMOVED BY THIS RN W/O COMPLICATIONS. NO QUESTIONS AT TIME OF D/C.
== END 2024-09-25 17:36 | disposition home health service (06) | DRG 871 ==
LOC: ER 11:49 → ICUE 14:35 → MEDS 14:35 → ICUE 15:30 → PCU 09-15 17:29 → MEDS 09-16 11:35
PROVIDERS: Internal Medicine; Internal Medicine Critical Care Medicine; Student in an Organized Health Care Education/Training Program; ADMIT Internal Medicine
PROC: 02HV33Z Insertion of Infusion Device into Superior Vena Cava, Percutaneous Approach (ICD-10-PCS; principal; 2024-09-13)
PROC: 3E033XZ Introduction of Vasopressor into Peripheral Vein, Percutaneous Approach (ICD-10-PCS; 2024-09-13)
PROC: 3E03329 Introduction of Other Anti-infective into Peripheral Vein, Percutaneous Approach (ICD-10-PCS; 2024-09-13)
PROC: 30233N1 Transfusion of Nonautologous Red Blood Cells into Peripheral Vein, Percutaneous Approach (ICD-10-PCS; 2024-09-13)
DX: A41.9 Sepsis, unspecified organism (principal); J18.9 Pneumonia, unspecified organism; N17.0 Acute kidney failure with tubular necrosis; R65.21 Severe sepsis with septic shock; E87.1 Hypo-osmolality and hyponatremia; E87.20 Acidosis, unspecified; I12.9 Hypertensive chronic kidney disease with stage 1 through stage 4 chronic kidney disease, or unspecified chronic kidney disease; N18.9 Chronic kidney disease, unspecified; Z99.3 Dependence on wheelchair; J45.909 Unspecified asthma, uncomplicated; F32.A Depression, unspecified; G40.909 Epilepsy, unspecified, not intractable, without status epilepticus; G43.709 Chronic migraine without aura, not intractable, without status migrainosus; F17.210 Nicotine dependence, cigarettes, uncomplicated; D64.9 Anemia, unspecified; E87.6 Hypokalemia; G89.29 Other chronic pain; E86.0 Dehydration; E83.42 Hypomagnesemia; E66.9 Obesity, unspecified; S62.101A Fracture of unspecified carpal bone, right wrist, initial encounter for closed fracture; E83.51 Hypocalcemia; G35 Multiple sclerosis; R13.10 Dysphagia, unspecified; M54.50 Low back pain, unspecified; Z68.32 Body mass index [BMI] 32.0-32.9, adult; Z86.73 Personal history of transient ischemic attack (TIA), and cerebral infarction without residual deficits; Z87.442 Personal history of urinary calculi; Z79.899 Other long term (current) drug therapy; Z79.891 Long term (current) use of opiate analgesic; Z90.710 Acquired absence of both cervix and uterus; Z82.49 Family history of ischemic heart disease and other diseases of the circulatory system; Z83.3 Family history of diabetes mellitus; Z88.5 Allergy status to narcotic agent; Z88.8 Allergy status to other drugs, medicaments and biological substances; Z90.49 Acquired absence of other specified parts of digestive tract; Z90.89 Acquired absence of other organs; Z98.890 Other specified postprocedural states
CPT/HCPCS: 0528U; 36415; 36416; 36430; 36556; 51701; 51702; 70450; 71045; 71250; 74176; 80048; 80053; 80069; 80164; 81001; 82330; 82607; 82728; 82746; 83540; 83550; 83605; 83690; 83735; 84132; 84134; 84145; 84443; 84484; 85014; 85018; 85025; 85027; 86850; 86900; 86901; 86923; 87040; 87086; 92526; 92610; 93005; 93010; 94760; 94762; 96365; 96366; 96375; 97110; 97112; 97116; 97161; 97166; 97530; 97535; 99291-25; A9270; C1751; J0456; J0696; J1650; J1938; J2405; J2470; J3010; J3475; J3480; J7030; J7050; J7060; P9016; P9047

== ENCOUNTER 2024-12-22 12:56 | Emergency (ER) | payer OTHER ==
[~2024-12-22] VITALS: Ht 175.3 cm; Wt 81.7 kg
[~2024-12-22 12:56] MED LIST changes: +ACET325 PO; +Calcium Carbon500 MG PO; +FOLI1 PO; +FURO20 PO; +GABA100 PO; +POTA10T PO
[2024-12-22 13:55] LABS: BASOPHILS ABSOLUTE AUTO 0.04 K/mm3 (0.00-0.23); BASOPHILS PERCENT AUTO 1 % (0-2); EOSINOPHILS ABSOLUTE AUTO 0.09 K/mm3 (0.00-0.68); EOSINOPHILS PERCENT AUTO 2 % (0-6); Hematocrit 36.1 % (33.0-51.0); Hemoglobin 12.0 g/dL (11.5-16.0); IMMATURE GRAN ABSOLUTE AUTO 0.02 K/mm3 (0.00-0.10); IMMATURE GRAN PERCENT AUTO 0 % (0-1); LYMPHOCYTES ABSOLUTE AUTO 1.58 K/mm3 (0.84-5.20); LYMPHOCYTES PERCENT AUTO 32 % (21-46); MONOCYTES ABSOLUTE AUTO 0.53 K/mm3 (0.16-1.47); MONOCYTES PERCENT AUTO 11 % (4-13); Mean Corpuscular HGB Conc 33.2 g/dL (31.5-36.5); Mean Corpuscular Volume 96 fL (80-100); NEUTROPHILS ABSOLUTE AUTO 2.75 K/mm3 (1.96-9.15); NEUTROPHILS PERCENT AUTO 55 % (41-73); NRBC ABSOLUTE 0.00 K/mm3 (0.00-0.02); NRBC Auto 0.0 /100 WBC (0.0-0.2); Platelet Count 242 K/mm3 (150-400); RDW Coefficient Variation 12.7 % (11.7-14.2); RDW Standard Deviation 44.6 fL (35.1-46.3)
[2024-12-22 14:01] LABS: Alanine Aminotransfer (ALT/SGP 10.0 U/L (12-78); Albumin, Blood 3.0 g/dL (3.4-5.0); Albumin/Globulin Ratio 0.8 (0.8-1.8); Anion Gap 9.0 mmol/L (3-11); Aspartate Aminotrans (AST/SGOT 17.0 U/L (12-37); Bilirubin, Total 0.1 mg/dL (0.1-1.0); Blood Urea Nitrogen 24.0 mg/dL (8-24); CO2, Blood 29.0 mmol/L (21-32); Calcium, Blood 8.9 mg/dL (8.5-10.1); Chloride, Blood 102.0 mmol/L (98-108); Creatinine, Blood 0.87 mg/dL (0.40-1.00); Globulin, Blood 4.0 g/dL (2.2-4.0); Glucose, Blood 93.0 mg/dL (70-99); Potassium, Blood 4.3 mmol/L (3.5-5.5); Sodium, Blood 136.0 mmol/L (136-145); Total Protein, Blood 7.0 g/dL (6.4-8.2)
[2024-12-22 14:50] VITALS: BP 1624/92
[2024-12-22 15:02] LABS: Source, Urine Clean Catch
[2024-12-22 15:32] LABS: Glucose Qualitative, Urine Neg (Neg); Ketones, Urine Neg (Neg); Leukocyte Esterase, Urine 1+ (Neg); Protein, Urine 2+ (Neg); Specific Gravity, Urine 1.015 (1.003-1.022); Urobilinogen, Urine 1+ (Normal)
[2024-12-22 15:43] LABS: Bilirubin, Urine 1+ (Neg)
[2024-12-22 15:44] LABS: Color, Urine Yellow (P-Yellow)
== END 2024-12-22 16:40 | disposition home or self-care (01) ==
LOC: ER 12:56
PROVIDERS: Physician Assistant
DX: R07.9 Chest pain, unspecified (principal); I10 Essential (primary) hypertension; F17.210 Nicotine dependence, cigarettes, uncomplicated; J45.909 Unspecified asthma, uncomplicated; Z59.89 Other problems related to housing and economic circumstances; Z88.8 Allergy status to other drugs, medicaments and biological substances; Z88.5 Allergy status to narcotic agent; Z79.899 Other long term (current) drug therapy
CPT/HCPCS: 36415; 71046; 80053; 81001; 83880; 84484; 85025; 87086; 93005; 93010; 99285-25